=== PATIENT | female | born 1935 | race Caucasian/White ===

== ENCOUNTER 2016-10-12 12:39 | Emergency (ER) | payer BC ==
[~2016-10-12] VITALS: Ht 172.7 cm; Wt 74.3 kg
[~2016-10-12 12:39] MED LIST: LXP/10 PO; RANI150T3 PO; SYN75 PO; VITA400C15 PO
[2016-10-12 12:52] VITALS: Ht 172.7 cm; Wt 74.3 kg
[2016-10-12] MEDS ORDERED: CHOL2000 PO (13:04)
--- NOTE | 2016-10-12 14:11 | DIAGNOSTIC IMAGING REPORT ---
SINGLE VIEW CHEST CLINICAL HISTORY: Hypertension. FINDINGS: An AP, portable, upright chest radiograph is compared to study dated 06/30/2014. The examination is degraded by portable technique and patient rotation. The cardiomediastinal silhouette is unremarkable. There is atherosclerotic calcification of the thoracic aorta. Chronic interstitial thickening is noted. The lungs and pleural spaces are clear. No pneumothorax is seen. The skeletal structures are osteopenic. Advanced arthritic change is seen in the shoulders, right greater than left. IMPRESSION: No acute cardiopulmonary abnormality. Electronically signed by: Sánchez Ramirez M.D. 10/12/2016 2:10 PM Dictated Date/Time: 10/12/2016 2:09 PM
[2016-10-12 14:28] LABS: BASO % 0.9 %; BASO ABS # 0.06 K/uL (0-0.2); COMPLETE YES; EOS % 2.5 %; HEMATOCRIT 38.9 % (37-47); IG% 0.2 %; LYMPH % 28.4 %; LYMPH ABS # 1.84 K/uL (1.2-3.4); MEAN CELL VOLUME 88.6 fL (80-100); MEAN CORPUSCULAR HEMOGLOBIN 30.8 pg (25-34); MEAN CORPUSCULAR HGB CONC 34.7 g/dl (32-36); MEAN PLATELET VOLUME 9.4 fL (7.4-10.4); MONO % 12.7 %; NEUT % 55.3 %; PLATELET COUNT 256 K/uL (130-400); RED BLOOD COUNT 4.39 M/uL (4.2-5.4); WHITE BLOOD COUNT 6.47 K/uL (4.8-10.8)
[2016-10-12 14:36] LABS: INR 1.1 (0.9-1.1); PROTHROMBIN TIME (PATIENT) 11.6 SECONDS (9.0-12.0)
[2016-10-12 14:48] LABS: ALT/SGPT 18 U/L (12-78); BLOOD UREA NITROGEN 31 mg/dl (7-18); BUN/CREATININE RATIO 23.5 (10-20); CALCIUM 9.5 mg/dl (8.5-10.1); CARBON DIOXIDE 25 mmol/L (21-32); CHLORIDE 106 mmol/L (98-107); GLUCOSE 110 mg/dl (70-99); POTASSIUM 3.6 mmol/L (3.5-5.1); SODIUM 141 mmol/L (136-145)
[2016-10-12 14:59] LABS: ALKALINE PHOSPHATASE 72 U/L (45-117); AST/SGOT 16 U/L (15-37)
[2016-10-12 17:15] LABS: URINE APPEARANCE CLEAR (CLEAR); URINE BILIRUBIN NEG (NEG); URINE COLOR YELLOW; URINE EPITHELIAL CELL AUTO 20-30 /lpf (0-5); URINE NITRITE NEG (NEG); URINE PH 5.5 (4.5-7.5); URINE SPECIFIC GRAVITY 1.017 (1.000-1.030); UROBILINOGEN NEG (NEG)
[2016-10-12] MEDS ORDERED: AMLODIPINE BESYLATE 5 MG TAB PO ONE (17:15)
[2016-10-12] MEDS ORDERED: AMLO5TAB2 PO (17:17)
[2016-10-12 17:37] LABS: MANUAL MICROSCOPIC REQUIRED? NO; REVIEW REQ? NO
[2016-10-12 18:08] VITALS: BP 222/99; PULSE 64; TEMP 36.6; O2SAT 98
--- NOTE | 2016-10-12 21:12 | EMERGENCY ROOM VISIT NOTE ---
History Report prepared by Evangelist: Luz Wallace Under the Supervision of: Dr. You Aguiar M.D. First contact with patient: 13:24 Chief Complaint: HYPERTENSION Stated Complaint: HIGH BLOOD PRESSURE History of Present Illness The patient is a 81 year old female who presents to the Emergency Room with complaints of persistent hypertension throughout the day today. The patient states that she woke up this morning around 4AM feeling "miserable" and with ear ringing. She took her blood pressure at that time and it was elevated. She has taken it a few times since then and continued to have high blood pressure, so she decided to come to the ER. She reports that she had a stressor at baby shower this past weekend and she is under the impression that this could have contributed to her blood pressure. She has a history of hypertension and has been on medications in the past including Maxzide, but was taken off of the medications by her PCP, although she cannot remember when. Pt denies LOC, headache, fevers, chills, diaphoresis, visual changes, neck pain, chest pain, breathing difficulties, nausea, vomiting, abdominal pain, back pain, melena, hematochezia, urinary symptoms, numbness, weakness, lymphadenopathy, rash, or other complaints. Source of History: patient Onset: today Position: other (global) Quality: other (hypertension) Timing: other (persistent) Review of Systems See HPI for pertinent positives and negatives. A total of ten systems were reviewed and were otherwise negative. Past Medical & Surgical Medical Problems: (1) Breast cancer (2) Diet-controlled type 2 diabetes mellitus (3) GERD (gastroesophageal reflux disease) (4) HTN (hypertension) (5) Hypothyroidism Surgical Problems: (1) H/O mastectomy Family History No pertinent family history stated. Social History Smoking Status: Never Smoker Marital Status: Housing Status: lives with significant other Current/Historical Medications Scheduled Amlodipine Besylate (Norvasc), 1 TAB PO DAILY Cholecalciferol (Vitamin D3), 2,000 INTER.UNIT PO DAILY Escitalopram Oxalate (Lexapro), 10 MG PO DAILY Levothyroxine Sodium (Synthroid), 75 MCG PO DAILY Ranitidine Hcl (Zantac), 150 MG PO DAILY Allergies Coded Allergies: Sulfa Drugs (Verified Allergy, Unknown, TAKES DYAZIDE AT HOME W/O RXN, ) Physical Exam Vital Signs Date Time Temp Pulse Resp B/P Pulse Ox O2 Delivery O2 Flow Rate FiO2 10/12/16 18:08 36.6 64 13 222/99 98 10/12/16 18:01 222/99 10/12/16 18:00 64 13 98 10/12/16 17:46 208/107 10/12/16 17:45 62 14 95 10/12/16 17:31 204/108 10/12/16 17:30 62 15 98 10/12/16 17:16 196/99 10/12/16 17:15 63 18 100 10/12/16 17:01 217/103 10/12/16 17:00 68 21 100 10/12/16 16:57 208/102 10/12/16 16:55 69 18 208/102 97 Room Air 10/12/16 16:54 67 87 10/12/16 16:39 60 97 10/12/16 16:24 60 99 10/12/16 16:09 61 93 10/12/16 15:54 62 19 97 10/12/16 15:39 61 16 97 10/12/16 15:24 60 14 98 10/12/16 15:09 62 16 100 10/12/16 14:54 61 13 97 10/12/16 14:39 62 20 100 10/12/16 14:38 62 10/12/16 14:18 63 14 175/87 98 Room Air 10/12/16 14:17 175/87 10/12/16 14:00 Room Air 10/12/16 12:52 36.6 68 16 106/66 99 Room Air Physical Exam GENERAL: Awake, alert, well appearing, no distress HENT: Normocephalic, atraumatic. TM's normal. Oropharynx unremarkable. EYES: PERRL. EOMI. Normal conjunctiva. Sclera non-icteric. NECK: Supple. No nuchal rigidity. FROM. No JVD or bruit. RESPIRATORY: CTA CARDIAC: RRR. No murmur. ABDOMEN: Soft, non distended. No tenderness to palpation. No rebound or guarding. No masses. RECTAL: Deferred. MUSCULOSKELETAL: Unremarkable. No edema. No discoloration. Gross motor strength symmetric. NEURO: Cranial nerves 2-12 grossly intact. Normal sensorium. No sensory or motor deficits noted. Speech normal. No pronator drift. SKIN: No rash or jaundice noted. LYMPH: No adenopathy. Medical Decision & Procedures ER Provider Diagnostic Interpretation: Radiology results as stated below per my review and radiologist interpretation: SINGLE VIEW CHEST CLINICAL HISTORY: Hypertension. FINDINGS: An AP, portable, upright chest radiograph is compared to study dated 06/30/2014. The examination is degraded by portable technique and patient rotation. The cardiomediastinal silhouette is unremarkable. There is atherosclerotic calcification of the thoracic aorta. Chronic interstitial thickening is noted. The lungs and pleural spaces are clear. No pneumothorax is seen. The skeletal structures are osteopenic. Advanced arthritic change is seen in the shoulders, right greater than left. IMPRESSION: No acute cardiopulmonary abnormality. Electronically signed by: Sánchez Ramirez M.D. 10/12/2016 2:10 PM Dictated Date/Time: 10/12/2016 2:09 PM Laboratory Results 10/12/16 14:05 Red Blood Count 4.39, Mean Corpuscular Volume 88.6, Mean Corpuscular Hemoglobin 30.8, Mean Corpuscular Hemoglobin Concent 34.7, Mean Platelet Volume 9.4, Neutrophils (%) (Auto) 55.3, Lymphocytes (%) (Auto) 28.4, Monocytes (%) (Auto) 12.7, Eosinophils (%) (Auto) 2.5, Basophils (%) (Auto) 0.9, Neutrophils # (Auto ) 3.58, Lymphocytes # (Auto) 1.84, Monocytes # (Auto) 0.82, Eosinophils # (Auto ) 0.16, Basophils # (Auto) 0.06 10/12/16 14:05 Test 10/12/16 14:05 10/12/16 17:00 White Blood Count 6.47 K/uL (4.8-10.8) Red Blood Count 4.39 M/uL (4.2-5.4) Hemoglobin 13.5 g/dL (12.0-16.0) Hematocrit 38.9 % (37-47) Mean Corpuscular Volume 88.6 fL (80-100) Mean Corpuscular Hemoglobin 30.8 pg (25-34) Mean Corpuscular Hemoglobin Concent 34.7 g/dl (32-36) Platelet Count 256 K/uL (130-400) Mean Platelet Volume 9.4 fL (7.4-10.4) Neutrophils (%) (Auto) 55.3 % Lymphocytes (%) (Auto) 28.4 % Monocytes (%) (Auto) 12.7 % Eosinophils (%) (Auto) 2.5 % Basophils (%) (Auto) 0.9 % Neutrophils # (Auto) 3.58 K/uL (1.4-6.5) Lymphocytes # (Auto) 1.84 K/uL (1.2-3.4) Monocytes # (Auto) 0.82 K/uL (0.11-0.59) Eosinophils # (Auto) 0.16 K/uL (0-0.5) Basophils # (Auto) 0.06 K/uL (0-0.2) RDW Standard Deviation 42.8 fL (36.4-46.3) RDW Coefficient of Variation 13.2 % (11.5-14.5) Immature Granulocyte % (Auto) 0.2 % Immature Granulocyte # (Auto) 0.01 K/uL (0.00-0.02) Prothrombin Time 11.6 SECONDS (9.0-12.0) Prothromb Time International Ratio 1.1 (0.9-1.1) Activated Partial Thromboplast Time 25.7 SECONDS (21.0-31.0) Partial Thromboplastin Ratio 1.0 Anion Gap 10.0 mmol/L (3-11) Est Creatinine Clear Calc Drug Dose 35.4 ml/min Estimated GFR () 45.2 Estimated GFR (Non- 39.0 BUN/Creatinine Ratio 23.5 (10-20) Calcium Level 9.5 mg/dl (8.5-10.1) Total Bilirubin 0.5 mg/dl (0.2-1) Direct Bilirubin < 0.1 mg/dl (0-0.2) Aspartate Amino Transf (AST/SGOT) 16 U/L (15-37) Alanine Aminotransferase (ALT/SGPT) 18 U/L (12-78) Alkaline Phosphatase 72 U/L (45-117) Total Protein 7.0 gm/dl (6.4-8.2) Albumin 3.8 gm/dl (3.4-5.0) Lipase 164 U/L (73-393) Thyroid Stimulating Hormone (TSH) 1.930 uIu/ml (0.300-4.500) Urine Color YELLOW Urine Appearance CLEAR (CLEAR) Urine pH 5.5 (4.5-7.5) Urine Specific [place] 1.017 (1.000-1.030) Urine Protein NEG (NEG) Urine Glucose (UA) NEG (NEG) Urine Ketones TRACE (NEG) Urine Occult Blood NEG (NEG) Urine Nitrite NEG (NEG) Urine Bilirubin NEG (NEG) Urine Urobilinogen NEG (NEG) Urine Leukocyte Esterase TRACE (NEG) Urine WBC (Auto) 1-5 /hpf (0-5) Urine RBC (Auto) 0-4 /hpf (0-4) Urine Hyaline Casts (Auto) 1-5 /lpf (0-5) Urine Epithelial Cells (Auto) 20-30 /lpf (0-5) Urine Bacteria (Auto) NEG (NEG) Laboratory results reviewed by me Medications Administered Medications (Trade) Dose Ordered Sig/Iram Route Start Time Stop Time Status Last Admin Dose Admin Amlodipine Besylate (Norvasc Tab) 5 mg NOW ONCE PO 10/12/16 17:15 10/12/16 17:16 DC 10/12/16 18:10 5 MG ECG Indication: other (hypertension) Rate (beats per minute): 67 Rhythm: normal sinus Findings: LAFB, Q waves (Septal), no ectopy, other (LVH) ED Course 1330: The patient was evaluated in room C2. A complete history and physical exam was performed. 1614: I reassessed the patient and updated her on results so far. 1634: I discussed the case with Dr. Cueto - [facility]. She recommended 5 of Norvasc. She will see the patient in the office. 1715: Ordered Norvasc 5 mg PO. 1717: I reevaluated the patient. She was resting comfortably. Discussed results and discharge instructions: She verbalized understanding and agreement. The patient is ready for discharge. Medical Decision Prior records/ancillary studies reviewed regarding the history above. Triage Nursing notes reviewed and agree them. Additional history obtained from the family. The patient's history was concerning for hypertension. Differential diagnosis: Etiologies such as benign hypertension, hypertensive emergency, cardiovascular pathology, pheochromocytoma, electrolyte abnormality, renal disease, endorgan damage, as well as others were entertained. Physical examination: As above.clinically the patient was doing very well. Asymptomatic ER treatment provided: Oral Norvasc On reassessment the patient felt better. Diagnostic interpretation by me: The electrocardiogram was negative for pathologic change. The labs revealed an unremarkable CT scan, chemistry panel, urinalysis, LFTs and TSH. Imaging studies: Chest x-ray as above. Consultation: A consultation was placed with the patient's primary physician. The case was discussed and diagnostics were reviewed. Norvasc 5 mg was recommended with close follow-up in the office for evaluation and continued management The patient has significant hypertension but is asymptomatic. By the evaluation outlined above emergent etiologies such as hypertensive emergency, pheochromocytoma, endorgan damage, cardiac ischemia, aortic dissection, pulmonary embolism, pneumonia, pneumothorax, infections, gastrointestinal, as well as others were deemed relatively unlikely. The patient and were informed about the findings as listed above. All questions were answered and they were pleased with the treatment. Return instructions were outlined and the patient was discharged in stable condition. Outpatient prescription management: Norvasc Referral: The patient was referred back to her primary care physician for follow-up in 2 to 3 days for a recheck of the current condition. The chart was completed utilizing [employer] Speech voice recognition software. Grammatical errors, random word insertions, pronoun errors, and incomplete sentences are an occasional consequence of this system due to software limitations, ambient noise, and hardware issues. Any formal questions or concerns about the content, text, or information contained within the body of this dictation should be directly addressed to the physician for clarification. Consults Time Called: 1630 Consulting Physician: Dr. Cueto - [facility] Returned Call: 1634 I discussed the case with her. She recommended 5 of Norvasc. She will see the patient in the office. Impression Primary Impression: HTN (hypertension) Scribe Attestation The scribe's documentation has been prepared under my direction and personally reviewed by me in its entirety. I confirm that the note above accurately reflects all work, treatment, procedures, and medical decision making performed by me. Departure Information Dispostion Home / Self-Care Prescriptions Amlodipine Besylate (NORVASC) 5 Mg Tab 1 TAB PO DAILY for 30 Days, #30 TAB Prov: You Aguiar MD 10/12/16 Referrals Perfecto Cueto M.D. (PCP) Patient Instructions Hypertension Ct, My [facility] [employer] Additional Instructions Monitor blood pressure twice daily and record this for your family doctor. Rest and drink plenty of fluids as tolerated. Continue current medications. Avoid strenuous activities and anything that worsens your pain. Resume normal activities once your symptoms resolve. Return to the ER immediately for passing out, severe headache, chest pain, abdominal pain, vomiting, fevers, chest pains, difficulty breathing, worsening of your condition, or as needed. Follow up with your primary physician tomorrow to schedule an appointment for a recheck of your current condition.
== END 2016-10-12 18:08 | disposition home or self-care (01) ==
LOC: C.EDB 12:41 → C.EDC 18:08
DX: I10 Essential (primary) hypertension (principal); Z85.3 Personal history of malignant neoplasm of breast; E11.9 Type 2 diabetes mellitus without complications; K21.9 Gastro-esophageal reflux disease without esophagitis; E03.9 Hypothyroidism, unspecified; Z90.10 Acquired absence of unspecified breast and nipple; Z79.899 Other long term (current) drug therapy

== ENCOUNTER 2017-11-25 14:50 | Emergency (ER) | payer BC ==
[~2017-11-25] VITALS: Ht 172.7 cm; Wt 69.0 kg
[~2017-11-25 14:50] MED LIST changes: +AMLO5TAB2 PO; +CHOL2000 PO; -VITA400C15 PO
[2017-11-25 14:59] VITALS: TEMP 36.5; Ht 172.7 cm; Wt 69.0 kg
[2017-11-25] MEDS ORDERED: DIPHTHERIA/TETANUS/PERTUSSIS 0.5 ML SYR/VIAL IM. ONE (15:00)
--- NOTE | 2017-11-25 15:00 | EMERGENCY ROOM VISIT NOTE ---
History Report prepared by Evangelist: Doyle Blevins Under the Supervision of: Dr. Ruth Urbina D.O. First contact with patient: 14:50 Chief Complaint: FALL Stated Complaint: FALL, LAC ABOVE LEFT EYE History of Present Illness The patient is an 82 year old female who presents to the Emergency Room via EMS with complaints of a sudden mechanical fall that occurred earlier this afternoon. She states that she is coming from home. The patient notes that she was walking out of her garage, and was walking down 2 concrete steps when she lost her balance and stumbled forward. She says that she tried to get her hands out to break the fall, and grazed her head on the surrounding ground, but did not hit her head on the concrete. The patient says that she was not dizzy or lightheaded before or after the fall. She notes that she has a resulting laceration around her left eye, and a laceration on her left hand. Per EMS, the patient was a bit hypertensive after the fall, but has a history of hypertension and is on Amlodipine for that. The patient adds that she is a bit nauseous, but that is from being nervous. She says that she feels fine otherwise , and denies any loss of consciousness. The patient states that she remembers everything from the fall. She denies any chest pain, shortness of breath, abdominal pain, back pain, or vomiting. The patient adds that she is not on any blood thinners. She notes that she takes Tylenol every evening. She says that she has a history of losing her balance. The patient does not recall when her last tetanus shot was. Source of History: patient, EMS Onset: [place] this afternoon Position: other (global) Symptom Intensity: remembers whole event Quality: other (fall - mechanical) Timing: other (sudden) Associated Symptoms: + nausea, No LOC, No chest pain, No SOB, No vomiting, No abdominal pain, No back pain Note: Associated symptoms: Laceration left eye, and left hand. Denies dizziness, lightheadedness. Review of Systems See HPI for pertinent positives & negatives. A total of 10 systems reviewed and were otherwise negative. Past Medical & Surgical Medical Problems: (1) Breast cancer (2) Diet-controlled type 2 diabetes mellitus (3) GERD (gastroesophageal reflux disease) (4) HTN (hypertension) (5) Hypothyroidism Surgical Problems: (1) H/O mastectomy Family History Family history omitted secondary to patient's advanced age. Social History Smoking Status: Never Smoker Marital Status: Housing Status: lives with significant other Current/Historical Medications Scheduled Acetaminophen (Tylenol), 500 MG PO QPM Amlodipine (Norvasc), 5 MG PO QPM Cholecalciferol (Vitamin D3), 2,000 INTER.UNIT PO QPM Escitalopram Oxalate (Lexapro), 10 MG PO QPM Levothyroxine Sodium (Levothyroxine Sodium), 125 MCG PO QPM Ranitidine Hcl (Zantac), 150 MG PO QPM Solifenacin Succinate (Vesicare), 5 MG PO QPM Allergies Coded Allergies: Sulfa Drugs (Verified Allergy, Unknown, TAKES DYAZIDE AT HOME W/O RXN, ) Physical Exam Vital Signs Date Time Temp Pulse Resp B/P (MAP) Pulse Ox O2 Delivery O2 Flow Rate FiO2 11/25/17 18:25 65 20 180/76 11/25/17 17:29 78 20 216/102 11/25/17 15:58 82 20 204/106 98 Room Air 11/25/17 15:08 76 20 193/94 98 Room Air 11/25/17 14:59 36.5 77 16 202/121 98 Room Air Physical Exam GENERAL: alert, well appearing, well nourished, no distress, non-toxic EYE EXAM: normal conjunctiva, PERRL and EOM's grossly intact HEAD: Superficial abrasion at the left lateral supraorbital ridge. No other facial swelling or bony tenderness. Head is otherwise normocephalic atraumatic. OROPHARYNX: no exudate, no erythema, lips, buccal mucosa, and tongue normal and mucous membranes are moist NECK: supple, no nuchal rigidity, no adenopathy, non-tender LUNGS: Clear to auscultation. Normal chest wall mechanics HEART: no murmurs, S1 normal and S2 normal ABDOMEN: abdomen soft, non-tender, normo-active bowel sounds, no masses, no rebound or guarding. BACK: Back is symmetrical on inspection and there is no deformity, no midline tenderness, no CVA tenderness. SKIN: no rashes and no bruising UPPER EXTREMITIES: Superficial abrasion to the proximal palmar aspect of the left hand. LOWER EXTREMITIES: No pitting edema. NEURO EXAM: Normal sensorium, cranial nerves II-XII grossly intact, normal speech, no gross weakness of arms, no gross weakness of legs. Medical Decision & Procedures ER Provider Diagnostic Interpretation: Radiology results have been interpreted by the radiologist and reviewed by me. PELVIS 1 OR 2 VIEW ROUTINE CLINICAL HISTORY: trauma COMPARISON STUDY: No previous studies for comparison. FINDINGS: Sacroiliac joints and symphysis pubis are intact. No acute fracture is identified within the pelvis or hips. Pelvic calcifications likely reflect phleboliths. IMPRESSION: No acute fracture within the pelvis or hips. Electronically signed by: Ronny Monson M.D. 11/25/2017 3:51 PM Dictated Date/Time: 11/25/2017 3:[address] OF THE HEAD WITHOUT CONTRAST CLINICAL HISTORY: Fall. COMPARISON STUDY: MRI of the brain August 05, 2007. CT DOSE: 893.36 mGy.cm TECHNIQUE: Helical axial images of the head were obtained without IV contrast. Automated exposure control was utilized for the study. A dose lowering technique was utilized adhering to the principles of ALARA. FINDINGS: No acute intracranial hemorrhage, midline shift or mass effect is present. Ventricular dilatation is likely due to atrophy. White matter hypodensities suggest moderate small vessel disease. The basilar cisterns are patent. There are no extra-axial collections. 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 There is no calvarial fracture. No is made of a small left periorbital contusion. Left globe is intact. There is no retrobulbar hematoma. IMPRESSION: 1. No acute intracranial findings. 2. Small left periorbital contusion. Left globe intact. No retrobulbar hematoma. No calvarial fracture. Electronically signed by: Ronny Monson M.D. 11/25/2017 3:32 PM Dictated Date/Time: 11/25/2017 3:30 PM CHEST ONE VIEW PORTABLE CLINICAL HISTORY: trauma COMPARISON STUDY: Chest radiograph October 12, 2016. FINDINGS: There are right axillary surgical clips. No pneumothorax or pleural effusion is noted. Patient is mildly rotated. No airspace opacities are present. Cardiomediastinal silhouette is unremarkable. IMPRESSION: No acute cardiopulmonary findings. Electronically signed by: Ronny Monson M.D. 11/25/2017 3:49 PM Dictated Date/Time: 11/25/2017 3:[address] OF THE CERVICAL SPINE WITHOUT CONTRAST CLINICAL HISTORY: Fall. COMPARISON STUDY: No previous studies for comparison. TECHNIQUE: Helical axial images of the cervical spine were obtained without IV contrast. Sagittal and coronal reconstructions were viewed. A dose lowering technique was utilized adhering to the principles of ALARA. FINDINGS: Alignment of the cervical spine is anatomic. No fracture is present. Craniocervical junction is intact. There is moderate multilevel degenerative disc disease and facet arthrosis. There is no prevertebral edema. IMPRESSION: No acute cervical spine fracture or subluxation. Electronically signed by: Ronny Monson M.D. 11/25/2017 3:47 PM Dictated Date/Time: 11/25/2017 3:33 PM Medications Administered Medications (Trade) Dose Ordered Sig/Iram Route Start Time Stop Time Status Last Admin Dose Admin Diphtheria/ Pertussis/Tetanus Vacc (Adacel Inj) 0.5 ml ONCE ONCE IM. 11/25/17 15:00 11/25/17 15:01 DC 11/25/17 16:00 0.5 ML Lorazepam (Ativan Tab) 0.5 mg NOW STAT SL 11/25/17 16:24 11/25/17 16:25 DC 11/25/17 16:49 0.5 MG Amlodipine Besylate (Norvasc Tab) 5 mg NOW ONCE PO 11/25/17 17:30 11/25/17 17:31 DC 11/25/17 17:51 5 MG Procedure Location: Left lateral supraorbital ridge. Total length: 1.5 cm Complexity: Simple Verbal consent was obtained after the risks and benefits were explained, including but not limited to bleeding, scarring, infection, pain, and bone/joint /nerve damage. At this time, the risks of the procedure are less than the risks of NOT performing the procedure. A time out was taken and the correct patient and site identified. The skin was prepped with betadine. The target area was anesthetized with 3 ml's of 1% lidocaine with epinephrine. Copious irrigation was performed using normal saline. The skin was re-prepped with betadine and a sterile field set. The wound was explored for foreign bodies and none found. Examination revealed no injury to deep structures such as tendons, bone, or significant blood vessels. Debridement was not performed. The wound edges were approximated using 3, 5-0 simple interrupted nylon sutures. Hemostasis and excellent approximation was achieved. Antibacterial ointment and a sterile dressing applied. Detailed wound care instructions and signs and symptoms of infection reviewed with the patient. No complications and the patient tolerated the procedure well. ED Course 1451: The patient was evaluated in room A10. A complete history and physical exam was performed. 1500: Adacel Inj 0.5 ml IM. 1609: I reevaluated and updated the patient. I also performed a laceration repair. 1624: Ativan Tab 0.5 mg SL. 1700: Upon reevaluation, the patient is feeling better. I discussed the findings and the treatment plan with the patient. She verbalizes agreement and understanding. 1730: Norvasc Tab 5 mg PO. 1800: I reevaluated and updated the patient. She is resting comfortably and asymptomatic. I discussed the findings and treatment plan with the patient. She will be discharged as soon as her blood pressure goes down. Medical Decision Differential diagnoses include major intracranial, cervical, spinal, thoracic, abdominal, pelvic and neurologic injury. Fracture, contusion, sprain, strain, laceration, abrasions included as well. Patient well-appearing here, imaging negative, patient with no other complaints. Concern for patient's persistent hypertension which feels more likely situational related to her anxiety regarding being here. Patient does take blood pressure medication daily. Patient with no other symptoms to suggest hypertensive urgency/emergency. Discussed with patient close follow-up with the family doctor to recheck her blood pressure, symptoms to watch and return for, precautions regarding head injuries and concussions, instructions regarding wound care and suture removal, she verbalized understanding was agreeable with plan. I do not suspect additional occult traumatic injury. Patient not anticoagulated and low risk. Patient ambulatory here with a steady gait and no new or evolving symptoms. Medication Reconcilliation Current Medication List: was personally reviewed by me Blood Pressure Screening Patient's blood pressure: Elevated blood pressure Blood pressure disposition: Referred to PCP Impression Primary Impression: Fall Additional Impressions: CHI (closed head injury) Facial laceration Abrasion Scribe Attestation The scribe's documentation has been prepared under my direction and personally reviewed by me in its entirety. I confirm that the note above accurately reflects all work, treatment, procedures, and medical decision making performed by me. Departure Information Dispostion Home / Self-Care Referrals Perfecto Cueto M.D. (PCP) Patient Instructions My [facility] Additional Instructions Please be careful with ambulation to avoid any recurrent falls or injury. The 3 stitches on the side of your face need to be removed in 5-7 days. Please watch for any redness, increased pain, bleeding or drainage from the site of the injury. If you notice any of this please return to the ER immediately. If you have any other worsening symptoms or new concerns including worsening headache, vision changes, dizziness, nausea or vomiting, numbness or tingling, neck or back pain, please return the emergency room. Please follow-up with your family doctor as a precaution next week. Problem Qualifiers Primary Impression: Fall Encounter type: initial encounter Qualified Codes: W19.XXXA - Unspecified fall, initial encounter Additional Impressions: CHI (closed head injury) Encounter type: initial encounter Qualified Codes: S09.90XA - Unspecified injury of head, initial encounter Facial laceration Encounter type: initial encounter Qualified Codes: S01.81XA - Laceration without foreign body of other part of head, initial encounter
[2017-11-25] MEDS ORDERED: AMLO-110 PO (15:11)
[2017-11-25] MEDS ORDERED: ACET-1256 PO (15:13)
[2017-11-25] MEDS ORDERED: LEVO125T5 PO (15:14)
[2017-11-25] MEDS ORDERED: SOLI5TAB2 PO (15:15)
--- NOTE | 2017-11-25 15:34 | DIAGNOSTIC IMAGING REPORT ---
CT OF THE HEAD WITHOUT CONTRAST CLINICAL HISTORY: Fall. COMPARISON STUDY: MRI of the brain August 05, 2007. CT DOSE: 893.36 mGy.cm TECHNIQUE: Helical axial images of the head were obtained without IV contrast. Automated exposure control was utilized for the study. A dose lowering technique was utilized adhering to the principles of ALARA. FINDINGS: No acute intracranial hemorrhage, midline shift or mass effect is present. Ventricular dilatation is likely due to atrophy. White matter hypodensities suggest moderate small vessel disease. The basilar cisterns are patent. There are no extra-axial collections. 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 There is no calvarial fracture. No is made of a small left periorbital contusion. Left globe is intact. There is no retrobulbar hematoma. IMPRESSION: 1. No acute intracranial findings. 2. Small left periorbital contusion. Left globe intact. No retrobulbar hematoma. No calvarial fracture. Electronically signed by: Ronny Monson M.D. 11/25/2017 3:32 PM Dictated Date/Time: 11/25/2017 3:30 PM
--- NOTE | 2017-11-25 15:48 | DIAGNOSTIC IMAGING REPORT ---
CT OF THE CERVICAL SPINE WITHOUT CONTRAST CLINICAL HISTORY: Fall. COMPARISON STUDY: No previous studies for comparison. TECHNIQUE: Helical axial images of the cervical spine were obtained without IV contrast. Sagittal and coronal reconstructions were viewed. A dose lowering technique was utilized adhering to the principles of ALARA. FINDINGS: Alignment of the cervical spine is anatomic. No fracture is present. Craniocervical junction is intact. There is moderate multilevel degenerative disc disease and facet arthrosis. There is no prevertebral edema. IMPRESSION: No acute cervical spine fracture or subluxation. Electronically signed by: Ronny Monson M.D. 11/25/2017 3:47 PM Dictated Date/Time: 11/25/2017 3:33 PM
--- NOTE | 2017-11-25 15:51 | DIAGNOSTIC IMAGING REPORT ---
CHEST ONE VIEW PORTABLE CLINICAL HISTORY: trauma COMPARISON STUDY: Chest radiograph October 12, 2016. FINDINGS: There are right axillary surgical clips. No pneumothorax or pleural effusion is noted. Patient is mildly rotated. No airspace opacities are present. Cardiomediastinal silhouette is unremarkable. IMPRESSION: No acute cardiopulmonary findings. Electronically signed by: Ronny Monson M.D. 11/25/2017 3:49 PM Dictated Date/Time: 11/25/2017 3:48 PM
--- NOTE | 2017-11-25 15:53 | DIAGNOSTIC IMAGING REPORT ---
PELVIS 1 OR 2 VIEW ROUTINE CLINICAL HISTORY: trauma COMPARISON STUDY: No previous studies for comparison. FINDINGS: Sacroiliac joints and symphysis pubis are intact. No acute fracture is identified within the pelvis or hips. Pelvic calcifications likely reflect phleboliths. IMPRESSION: No acute fracture within the pelvis or hips. Electronically signed by: Ronny Monson M.D. 11/25/2017 3:51 PM Dictated Date/Time: 11/25/2017 3:50 PM
[2017-11-25 15:58] VITALS: O2SAT 98
[2017-11-25] MEDS ORDERED: LIDOCAINE/EPINEPHRINE 1% 20 ML VIAL ONE (16:13)
[2017-11-25] MEDS ORDERED: LORAZEPAM 0.5 MG TAB SL STA (16:24)
[2017-11-25] MEDS ORDERED: AMLODIPINE BESYLATE 5 MG TAB PO ONE (17:30)
[2017-11-25 18:25] VITALS: BP 180/76; PULSE 65
== END 2017-11-25 18:30 | disposition home or self-care (01) ==
LOC: EDBD 14:50 → C.EDA 14:51
DX: S09.90XA Unspecified injury of head, initial encounter (principal); S01.81XA Laceration without foreign body of other part of head, initial encounter; W10.9XXA Fall (on) (from) unspecified stairs and steps, initial encounter; W22.8XXA Striking against or struck by other objects, initial encounter; Y93.01 Activity, walking, marching and hiking; Y99.8 Other external cause status; Y92.015 Private garage of single-family (private) house as the place of occurrence of the external cause; Z23 Encounter for immunization; E11.9 Type 2 diabetes mellitus without complications; I10 Essential (primary) hypertension; E03.9 Hypothyroidism, unspecified; K21.9 Gastro-esophageal reflux disease without esophagitis; Z85.3 Personal history of malignant neoplasm of breast; Z90.10 Acquired absence of unspecified breast and nipple; Z88.2 Allergy status to sulfonamides; Z79.899 Other long term (current) drug therapy

== ENCOUNTER 2019-06-24 16:01 | Inpatient (IN) ==
[2019-06-24] MEDS ORDERED: SODIUM CHLORIDE 0.9% 1000ML 500 ML IV ONE (16:13)
--- NOTE | 2019-06-24 16:34 | XRay Report ---
SINGLE VIEW CHEST CLINICAL HISTORY: Generalized weakness. FINDINGS: An AP, portable, upright chest radiograph is compared to study dated 11/25/2017. The examina tion is degraded by portable technique and patient rotation. The cardiomediastinal silhouette is unre markable noting atherosclerotic calcification of the thoracic aorta. Chronic interstitial thickening and elevation of the left hemidiaphragm are similar to previous. No airspace consolidation or large p leural effusion is identified. Foci of linear atelectasis are noted at the left lung base. No pneumot horax is seen. The skeletal structures are osteopenic. The bony thorax is grossly intact. Advanced de generative change is noted in the shoulders. Surgical clips are seen in the right axilla. IMPRESSION: No active disease in the chest. Electronically signed by: Sánchez Ramirez M.D. 06/24/2019 4:33 PM
[2019-06-24 17:17] LABS: Appearance Urine Cloudy (Clear); Bacteria Urine Automated 4+ (Negative); Bilirubin Urine Negative (Negative); Blood Urine Negative (Negative); Color Urine Dark Yellow; Glucose Urine UA Negative (Negative); Ketones Urine Negative (Negative); Leukocyte Esterase Urine Negative (Negative); Nitrite Urine Positive (Negative); Protein Urine Negative (Negative); RBC Urine Automated 0-4 /hpf (0-4); Specific Gravity Urine 1.018 (1.000-1.030); Urobilinogen Urine Negative (Negative); pH Urine 5.5 (4.5-7.5)
[2019-06-24 17:34] LABS: Basophils # (auto) 0.06 K/uL (0-0.2); Basophils % (auto) 0.7 %; Eosinophils # (auto) 0.12 K/uL (0-0.5); Eosinophils % (auto) 1.5 %; Hematocrit (blood only) 38.3 % (37-47); Hemoglobin 13.1 g/dL (12.0-16.0); Immature Granulocytes # (auto) 0.01 K/uL (0.00-0.02); Immature Granulocytes % (auto) 0.1 %; Lymphocytes % (auto) 11.1 %; Mean Corpuscular Hemoglobin 30.9 pg (25-34); Mean Corpuscular Hgb Conc 34.2 g/dL (32-36); Mean Corpuscular Volume 90.3 fL (80-100); Mean Platelet Volume 9.6 fL (7.4-10.4); Monocytes # (auto) 0.72 K/uL (0.11-0.59); Monocytes % (auto) 8.9 %; Neutrophils # (auto) 6.28 K/uL (1.4-6.5); Neutrophils % (auto) 77.7 %; Platelet Count 249 K/uL (130-400); RDW Coefficient of Variation 12.6 % (11.5-14.5); RDW Standard Deviation 41.4 fL (36.4-46.3); Red Blood Count 4.24 M/uL (4.2-5.4); White Blood Count 8.09 K/uL (4.8-10.8)
[2019-06-24] MEDS ORDERED: cefTRIAXone SODIUM 2,000 MG/70 ML BAG IV STA (17:39)
[2019-06-24 17:52] LABS: Alanine Aminotransferase 16 U/L (12-78); Albumin Level 3.6 gm/dl (3.4-5.0); Aspartate Aminotransferase 14 U/L (15-37); BUN Creatinine Ratio 22.2 (10-20); Blood Urea Nitrogen 39 mg/dl (7-18); Calcium 9.8 mg/dl (8.5-10.1); Carbon Dioxide 26 mmol/L (21-32); Chloride 106 mmol/L (98-107); Creatinine Clr Calc Pharmacy 24.9 ml/min; Est GFR (African American) 30.7; Est GFR (Non-African American) 26.5; Glucose 161 mg/dl (70-99); Potassium 3.6 mmol/L (3.5-5.1); Sodium 138 mmol/L (136-145)
[2019-06-24 18:03] LABS: Albumin Globulin Ratio 1.1 (0.9-2); Alkaline Phosphatase 61 U/L (45-117); Bilirubin,Total 0.5 mg/dl (0.2-1); Creatine Kinase 56 U/L (26-192); Globulin 3.2 gm/dl (2.5-4.0); Total Protein 6.8 gm/dl (6.4-8.2); Troponin I < 0.015 ng/ml (0-0.045)
--- NOTE | 2019-06-24 18:11 | CT Scan Report ---
CT SCAN OF THE BRAIN WITHOUT IV CONTRAST CLINICAL HISTORY: Change in mental status. COMPARISON STUDY: CT of the brain dated 11/25/2017. TECHNIQUE: Unenhanced axial CT scan of the brain is performed from the vertex to the skull base. A do se lowering technique was utilized adhering to the principles of ALARA. CT DOSE: 580.48 mGy.cm FINDINGS: Brain parenchyma: There are age-related involutional changes noting advanced confluent subcortical a nd periventricular microangiopathic change. There is no hemorrhage, mass effect, or evidence of acute territorial ischemia by CT criteria. 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 A small chronic lacunar infarct is also noted in the right cerebellar hemisphere. A small arachnoid cy st is noted in the anterior temporal fossa on the left measuring up to 3 cm. Cruz-white matter differ entiation is preserved. No extra-axial fluid collection is seen. Ventricles, sulci, cisterns: Prominent secondary to involutional change. Intracranial vasculature: There is atherosclerotic calcification of the cavernous carotid and vertebr al arteries. Calvarium: Foci of hyperostosis are again noted. The calvarium appears intact. Sinuses and mastoids: There is trace mucosal thickening within the ethmoid sinuses. The remaining vis ualized paranasal sinuses are clear. The mastoid air cells are well pneumatized. Orbits: The bony orbits are grossly intact. There are bilateral ocular lens implants. IMPRESSION: Senescent changes as above with no hemorrhage, mass effect, or evidence of acute territor ial ischemia by CT criteria. Electronically signed by: Sánchez Ramirez M.D. 06/24/2019 6:10 PM
[2019-06-24 18:19] LABS: Lyme Ab IgG w/WB Rflx Negative (Negative); Lyme Ab IgM w/WB Rflx Negative (Negative)
--- NOTE | 2019-06-24 21:34 | History & Physical Report ---
Date of Service June 24, 2019 Assessment & Plan (1) Altered mental status: Patient presents with mild confusion. Has been endorses that she has had memory deficit and increased confusion over the last 6 months. They currently have an appointment at the end of July to assess for possible dementia. Additionally, patient appears to have a UTI and some dehydration which may be adding to confusion. Electrolytes and TSH are within normal limits, CT head with senescent changes and no acute intracranial pathology. No new medications or medication changes. Admit to medical floor telemetry monitoring -Delirium prevention strategies with frequent orientation -Treatment of UTI and dehydration as below -We will check B12 and folate to complete AMS work-up Present on Admission?: Yes (2) UTI (urinary tract infection): Patient with + UA suggestive of UTI. She is afebrile, hemodynamically stable, nontoxic in appearance. Follow cultures Ceftriaxone 1 g IV daily Present on Admission?: Yes (3) Syncope: Patient presents with what seems to be a syncopal event at home. She has had multiple events similar in the past. Presently she is hemodynamically stable. EKG with no acute findings -Telemetry monitoring -Check orthostatic vital signs x1 -Check 2D echo Present on Admission?: Yes (4) Dehydration: Patient with mild elevation of BUN and creatinine to 39 and 1.76, respectively. She appears clinically dry on physical exam. IV hydration with normal saline -Repeat chemistry in a.m. Present on Admission?: Yes (5) HTN (hypertension): Blood pressures mildly hypertensive upon arrival 186/86, has improved to 121/91 upon my encounter. Hold lisinopril for now in setting of mild increase in creatinine -Continue to monitor blood pressure (6) Hypothyroidism: Chronic. Stable. TSH within normal limits Continue levothyroxine at home dose Present on Admission?: Yes (7) Diet-controlled type 2 diabetes mellitus: Chronic. Stable. Blood glucose = 161 at present Consistent carb diet as tolerated F/E/Nnormal saline solution, monitor electrolytes and replete as needed, consistent carb diet as tolerated ProphylaxisLovenox 30 CodeDNR/DNI per discussion with patient Dispositionobservation to medical floor telemetry monitoring History of Present Illness Chief Complaint: syncope Primary Care Provider: Perfecto Cueto MD Theresa Calderón is a pleasant 84-year-old female with history of diet- controlled diabetes, GERD, hypertension and hypothyroidism presenting after syncopal event. is at bedside and provides the majority of details secondary to patient confusion. Per , patient was sitting on a chair this afternoon when she slumped forward and became unresponsive. She was out approximately 10 minutes then slowly regained consciousness. He denies confusion, incontinence. She did have some minor tremors she was regaining consciousness, no overt seizure activity. Patient has minimal recollection of the event but is able to deny chest pain, palpitations, dizziness, headache preceding or following the event. Per , patient has had similar episodes in the past approximately 2-3 times that he recalls over the past year. The last syncopal event was a few months ago and was similar to tonight's episode. Additionally, the patient and endorse balance difficulty ongoing for the last month as well as gait instability. Patient has been needing to use her walker at home. She reports that she is unable to stand for more than 15 minutes before becoming dizzy. She is also had urinary incontinence ongoing for the last year. endorses approximately 6 months of poor memory and confusion. Patient notes an occasional resting tremor in her hands. Also states that she has occasional visual hallucinationsseeing her mother. Patient has an appointment on [address] Daniels for further testing of possible dementia/cognitive impairment. Patient denies fevers, chills, abdominal pain, nausea, vomiting, diarrhea, constipation, chest pain, palpitations, shortness of breath, cough, wheeze. She does endorse some urinary incontinence ongoing for the last year but denies dysuria or hematuria ER course: Ceftriaxone, normal saline Allergies Allergy/AdvReac Type Severity Reaction Status Date / Time Sulfa (Sulfonamide Allergy Unknown TAKES Verified 06/24/19 16:51 Antibiotics) DYAZIDE AT HOME W/O RXN Home Medications Home Medications Medication Instructions Recorded Confirmed Type acetaminophen 1,000 mg PO QPM PRN 02/01/19 06/24/19 History celecoxib 100 mg PO BID 02/01/19 06/24/19 History cholecalciferol (vitamin D3) 2,000 unit PO QPM 02/01/19 06/24/19 History [Vitamin D3] latanoprost 1 drp OPB HS 02/01/19 06/24/19 History levothyroxine 125 mcg PO QAM 02/01/19 06/24/19 History meclizine [Motion Sickness 25 mg PO TID PRN 02/01/19 06/24/19 History (meclizine)] alendronate 70 mg PO WK 06/24/19 06/24/19 History escitalopram oxalate 10 mg PO DAILY 06/24/19 06/24/19 History lisinopril 2.5 mg PO DAILY 06/24/19 06/24/19 History solifenacin 5 mg PO DAILY 06/24/19 06/24/19 History Past Med/Surg History Medical History Breast cancer (Resolved) Diet-controlled type 2 diabetes mellitus (Chronic) GERD (gastroesophageal reflux disease) (Chronic) HTN (hypertension) (Chronic) Hypothyroidism (Chronic) Viral upper respiratory illness (Acute) Surgical History H/O mastectomy (Resolved) Family History Other Family history non-contributory Social History (Updated 06/24/19 @ 21:53 by Reena Rapp DO) Preferred Language: Azeri marital status: Current Living Situation: Spouse current occupational status: retired Feels Safe at Home: Yes Smoking Status: Never smoker Hx Alcohol Use: No Hx Substance Use: No Review of Systems Review of Systems: All systems reviewed & are unremarkable except as noted in HPI & below Physical Exam Physical Exam: General: patient resting comfortably, NAD, non-toxic in appearance, AA&O to self, is able to provide some details of history and events prior to the hospital however becomes confused with tangential thoughts Skin: warm, dry, intact, no rashes or lesions HEENT: NC/AT, PERRL, EOMI, anicteric sclera, conjunctiva without injection, external ear normal to inspection and nontender, nares patent, dry mucus membranes, dentition intact, no oropharyngeal lesions, neck supple, trachea midline, no LAD, no thyromegaly, no JVD Heart: +S1/S2, regular, no m/r/g Lungs: equal air entry bilaterally, no rales/rhonchi/wheezes Abd: +BS, soft, NT/ND, no masses/organomegaly/ascites Ext: warm, 2+ pulses in UE/LE bilaterally, no clubbing/cyanosis or edema Neuro: nonfocal, patient AA&O to self, speech intact, no facial droop, moving all extremities on command with equal strength 5/5 Results & Data Vital Signs (Past 12 Hours) Vital Signs Temp Pulse Resp BP Pulse Ox 06/24/19 20:00 73 18 186/86 H 96 06/24/19 19:30 76 17 156/85 H 96 06/24/19 19:00 76 18 159/77 H 98 06/24/19 18:30 76 19 165/77 H 95 06/24/19 18:12 74 19 98 06/24/19 18:11 74 17 155/91 H 97 06/24/19 17:31 73 15 172/91 H 99 06/24/19 17:30 73 18 99 06/24/19 17:06 72 22 97 06/24/19 17:00 73 16 163/148 H 97 06/24/19 16:26 98 06/24/19 16:01 36.5 C 70 18 138/75 98 Laboratory Results Lab Results 06/24/19 06/24/19 06/24/19 Range/Units 17:05 17:15 17:15 WBC 8.09 (4.8-10.8) K/uL RBC 4.24 (4.2-5.4) M/uL Hgb 13.1 (12.0-16.0) g/dL Hct 38.3 (37-47) % MCV 90.3 (80-100) fL MCH 30.9 (25-34) pg MCHC 34.2 (32-36) g/dL RDW Std Deviation 41.4 (36.4-46.3) fL RDW Coeff of Rogelio 12.6 (11.5-14.5) % Plt Count 249 (130-400) K/uL MPV 9.6 (7.4-10.4) fL Immature Gran % (Auto) 0.1 % Neut % (Auto) 77.7 % Lymph % (Auto) 11.1 % Polk % (Auto) 8.9 % Eos % (Auto) 1.5 % Baso % (Auto) 0.7 % Immature Gran # (Auto) 0.01 (0.00-0.02) K/uL Neut # (Auto) 6.28 (1.4-6.5) K/uL Lymph # (Auto) 0.90 L (1.2-3.4) K/uL Polk # (Auto) 0.72 H (0.11-0.59) K/uL Eos # (Auto) 0.12 (0-0.5) K/uL Baso # (Auto) 0.06 (0-0.2) K/uL Sodium 138 (136-145) mmol/L Potassium 3.6 (3.5-5.1) mmol/L Chloride 106 (98-107) mmol/L Carbon Dioxide 26 (21-32) mmol/L Anion Gap 6.0 (3-11) BUN 39 H (7-18) mg/dl Creatinine 1.76 H (0.6-1.2) mg/dl Est Cr Clr Drug Dosing 24.9 ml/min Est GFR ( Amer) 30.7 Est GFR (Non-Af Amer) 26.5 BUN/Creatinine Ratio 22.2 H (10-20) Glucose 161 H (70-99) mg/dl Calcium 9.8 (8.5-10.1) mg/dl Total Bilirubin 0.5 (0.2-1) mg/dl AST 14 L (15-37) U/L ALT 16 (12-78) U/L Alkaline Phosphatase 61 (45-117) U/L Total Creatine Kinase 56 (26-192) U/L Troponin I < 0.015 (0-0.045) ng/ml Total Protein 6.8 (6.4-8.2) gm/dl Albumin 3.6 (3.4-5.0) gm/dl Globulin 3.2 (2.5-4.0) gm/dl Albumin/Globulin Ratio 1.1 (0.9-2) TSH 1.770 (0.300-4.500) uIu/ml Urine Color Dark Yellow Urine Appearance Cloudy A (Clear) Urine pH 5.5 (4.5-7.5) Ur Specific [place] 1.018 (1.000-1.030) Urine Protein Negative (Negative) Urine Glucose (UA) Negative (Negative) Urine Ketones Negative (Negative) Urine Blood Negative (Negative) Urine Nitrite Positive A (Negative) Urine Bilirubin Negative (Negative) Urine Urobilinogen Negative (Negative) Ur Leukocyte Esterase Negative (Negative) Urine WBC (Auto) 1-5 (0-5) /hpf Urine RBC (Auto) 0-4 (0-4) /hpf U Hyaline Cast (Auto) 1-5 (0-5) /lpf U Epithel Cells (Auto) 10-20 H (0-5) /lpf Urine Bacteria (Auto) 4+ H (Negative) Lyme Disease IgG Ab (Negative) Lyme Disease IgM Ab (Negative) 06/24/19 Range/Units 17:15 WBC (4.8-10.8) K/uL RBC (4.2-5.4) M/uL Hgb (12.0-16.0) g/dL Hct (37-47) % MCV (80-100) fL MCH (25-34) pg MCHC (32-36) g/dL RDW Std Deviation (36.4-46.3) fL RDW Coeff of Rogelio (11.5-14.5) % Plt Count (130-400) K/uL MPV (7.4-10.4) fL Immature Gran % (Auto) % Neut % (Auto) % Lymph % (Auto) % Polk % (Auto) % Eos % (Auto) % Baso % (Auto) % Immature Gran # (Auto) (0.00-0.02) K/uL Neut # (Auto) (1.4-6.5) K/uL Lymph # (Auto) (1.2-3.4) K/uL Polk # (Auto) (0.11-0.59) K/uL Eos # (Auto) (0-0.5) K/uL Baso # (Auto) (0-0.2) K/uL Sodium (136-145) mmol/L Potassium (3.5-5.1) mmol/L Chloride (98-107) mmol/L Carbon Dioxide (21-32) mmol/L Anion Gap (3-11) BUN (7-18) mg/dl Creatinine (0.6-1.2) mg/dl Est Cr Clr Drug Dosing ml/min Est GFR ( Amer) Est GFR (Non-Af Amer) BUN/Creatinine Ratio (10-20) Glucose (70-99) mg/dl Calcium (8.5-10.1) mg/dl Total Bilirubin (0.2-1) mg/dl AST (15-37) U/L ALT (12-78) U/L Alkaline Phosphatase (45-117) U/L Total Creatine Kinase (26-192) U/L Troponin I (0-0.045) ng/ml Total Protein (6.4-8.2) gm/dl Albumin (3.4-5.0) gm/dl Globulin (2.5-4.0) gm/dl Albumin/Globulin Ratio (0.9-2) TSH (0.300-4.500) uIu/ml Urine Color Urine Appearance (Clear) Urine pH (4.5-7.5) Ur Specific [place] (1.000-1.030) Urine Protein (Negative) Urine Glucose (UA) (Negative) Urine Ketones (Negative) Urine Blood (Negative) Urine Nitrite (Negative) Urine Bilirubin (Negative) Urine Urobilinogen (Negative) Ur Leukocyte Esterase (Negative) Urine WBC (Auto) (0-5) /hpf Urine RBC (Auto) (0-4) /hpf U Hyaline Cast (Auto) (0-5) /lpf U Epithel Cells (Auto) (0-5) /lpf Urine Bacteria (Auto) (Negative) Lyme Disease IgG Ab Negative (Negative) Lyme Disease IgM Ab Negative (Negative) Diagnostic Findings CT SCAN OF THE BRAIN WITHOUT IV CONTRAST CLINICAL HISTORY: Change in mental status. COMPARISON STUDY: CT of the brain dated 11/25/2017. TECHNIQUE: Unenhanced axial CT scan of the brain is performed from the vertex to the skull base. A dose lowering technique was utilized adhering to the principles of ALARA. CT DOSE: 580.48 mGy.cm FINDINGS: Brain parenchyma: There are age-related involutional changes noting advanced confluent subcortical and periventricular microangiopathic change. There is no hemorrhage, mass effect, or evidence of acute territorial ischemia by CT criteria. 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 A small chronic lacunar infarct is also noted in the right cerebellar hemisphere. A small arachnoid cyst is noted in the anterior temporal fossa on the left measuring up to 3 cm. Cruz-white matter differentiation is preserved. No extra- axial fluid collection is seen. Ventricles, sulci, cisterns: Prominent secondary to involutional change. Intracranial vasculature: There is atherosclerotic calcification of the cavernous carotid and vertebral arteries. Calvarium: Foci of hyperostosis are again noted. The calvarium appears intact. Sinuses and mastoids: There is trace mucosal thickening within the ethmoid sinuses. The remaining visualized paranasal sinuses are clear. The mastoid air cells are well pneumatized. Orbits: The bony orbits are grossly intact. There are bilateral ocular lens implants. IMPRESSION: Senescent changes as above with no hemorrhage, mass effect, or evidence of acute territorial ischemia by CT criteria. Electronically signed by: Sánchez Ramirez M.D. 06/24/2019 6:10 PM Dictated: 06/24/19 180 Transcribed: 06/24/191805 SINGLE VIEW CHEST CLINICAL HISTORY: Generalized weakness. FINDINGS: An AP, portable, upright chest radiograph is compared to study dated 11/25/2017. The examination is degraded by portable technique and patient rotation. The cardiomediastinal silhouette is unremarkable noting atherosclerotic calcification of the thoracic aorta. Chronic interstitial thickening and elevation of the left hemidiaphragm are similar to previous. No airspace consolidation or large pleural effusion is identified. Foci of linear atelectasis are noted at the left lung base. No pneumothorax is seen. The skeletal structures are osteopenic. The bony thorax is grossly intact. Advanced degenerative change is noted in the shoulders. Surgical clips are seen in the right axilla. IMPRESSION: No active disease in the chest. Electronically signed by: Sánchez Ramirez M.D. 06/24/2019 4:33 PM Dictated: 06/24/19 1632 ECG Additional Comments: Study shows normal sinus rhythm at 75 bpm, left axis kelli ation with left anterior fascicular block, WA = 75, QRS = 86, QTc = 480, no acute ischemic changes apparent Code Status & VTE Plan Code Status DNR/DNI PG Care Time/CCT Total # of Minutes Spent Total Time Spent with Patient: Total time spent is greater than 50% in coordination of care (as documented) at patient's floor/unit and/or counseling patient: (1) UTI (urinary tract infection) Urinary tract infection type: acute cystitis Hematuria presence: without hematuria Qualified Code(s): N30.00 - Acute cystitis without hematuria (2) HTN (hypertension) Hypertension type: essential hypertension Qualified Code(s): I10 - Essential (primary) hypertension (3) Hypothyroidism Hypothyroidism type: unspecified Qualified Code(s): E03.9 - Hypothyroidism, unspecified (4) Altered mental status Altered mental status type: disorientation Qualified Code(s): R41.0 - Disorie ntation, unspecified (5) Syncope Syncope type: unspecified Qualified Code(s): R55 - Syncope and collapse
--- NOTE | 2019-06-24 22:41 | Emergency Department Note ---
Entered by Luz Forte acting as a scribe for Elías Walker MD History of Present Illness General Chief complaint: Seizure Stated complaint: SEIZURE Time Seen by Provider: 06/24/19 16:03 Source: patient and EMS Limitations: no limitations History of Present Illness Onset (ago): minute(s) (BUTTON SEWER HAND) Location: head Severity: similar to prior episodes Pain Consistency: + other (episode) Quality: + other ("seizure-like" activity) Associated symptoms: + denies other symptoms (abdominal pain) The patient is an 84 year old female who presents to the Emergency Room with complaints of an episode of "seizure-like" activity that occurred BUTTON SEWER HAND. Per EMS, the patient was seen in this ER 4 weeks ago for similar symptoms, noting that she was hypertensive at the time. EMS reports that her medications were adjusted after this episode. Per EMS, the patient's describes the seizure-like activity as "shaking and then staring off into space" while she was sitting down. The patient denies any abdominal pain. Home Medications Home Medications Medication Instructions Recorded Confirmed Type acetaminophen 1,000 mg PO QPM PRN 02/01/19 06/24/19 History celecoxib 100 mg PO BID 02/01/19 06/24/19 History cholecalciferol (vitamin D3) 2,000 unit PO QPM 02/01/19 06/24/19 History [Vitamin D3] latanoprost 1 drp OPB HS 02/01/19 06/24/19 History levothyroxine 125 mcg PO QAM 02/01/19 06/24/19 History meclizine [Motion Sickness 25 mg PO TID PRN 02/01/19 06/24/19 History (meclizine)] alendronate 70 mg PO WK 06/24/19 06/24/19 History escitalopram oxalate 10 mg PO DAILY 06/24/19 06/24/19 History lisinopril 2.5 mg PO DAILY 06/24/19 06/24/19 History solifenacin 5 mg PO DAILY 06/24/19 06/24/19 History Allergies Allergy/AdvReac Type Severity Reaction Status Date / Time Sulfa (Sulfonamide Allergy Unknown TAKES Verified 06/24/19 16:51 Antibiotics) DYAZIDE AT HOME W/O RXN Past Med/Surg History Medical History (Updated 06/25/19 @ 23:57 by Elías Walker MD) Breast cancer (Resolved) CVA (cerebral vascular accident) Diet-controlled type 2 diabetes mellitus (Chronic) GERD (gastroesophageal reflux disease) (Chronic) HTN (hypertension) (Chronic) Hypothyroidism (Chronic) Viral upper respiratory illness (Acute) Surgical History H/O mastectomy (Resolved) Family History Other Family history non-contributory Social History (Updated 06/24/19 @ 21:53 by Reena Rapp DO) Preferred Language: Bengali Communication Ability: Effective 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 and A total of 10 systems reviewed and were otherwise negative Physical Exam Vital Signs Vital Signs - 24 hr 06/25/19 01:27 06/25/19 03:42 06/25/19 04:46 Temperature 36.5 C Temperature Source Oral Pulse Rate - Lying Pulse Rate - Sitting Pulse Rate - Standing Pulse Rate Pulse Rate [Finger] Pulse Rate [Left Radial] 65 79 Pulse Rhythm [Finger] Respiratory Rate 20 Blood Pressure - Lying Blood Pressure - Sitting Blood Pressure- Standing Blood Pressure [Left Arm] 192/83 H 194/87 H Blood Pressure Mean [Left Arm] 119 122 Blood Pressure Position [Left Arm] Lying Lying Pulse Oximetry 93 Oxygen Delivery Method Room Air Room Air 06/25/19 05:35 06/25/19 06:02 06/25/19 07:18 Temperature 36.7 C Temperature Source Oral Pulse Rate - Lying Pulse Rate - Sitting Pulse Rate - Standing Pulse Rate 72 Pulse Rate [Finger] 72 Pulse Rate [Left Radial] 81 Pulse Rhythm [Finger] Respiratory Rate 19 Blood Pressure - Lying Blood Pressure - Sitting Blood Pressure- Standing Blood Pressure [Left Arm] 159/103 H 193/90 H Blood Pressure Mean [Left Arm] 121 124 Blood Pressure Position [Left Arm] Semi-fowlers Lying Pulse Oximetry 98 Oxygen Delivery Method Room Air 06/25/19 07:50 06/25/19 09:17 06/25/19 11:29 Temperature 36.7 C Temperature Source Oral Pulse Rate - Lying Pulse Rate - Sitting Pulse Rate - Standing Pulse Rate 73 Pulse Rate [Finger] 89 101 H Pulse Rate [Left Radial] Pulse Rhythm [Finger] Regular Respiratory Rate 20 Blood Pressure - Lying Blood Pressure - Sitting Blood Pressure- Standing Blood Pressure [Left Arm] 136/70 166/85 H Blood Pressure Mean [Left Arm] 92 112 Blood Pressure Position [Left Arm] Lying Pulse Oximetry 96 Oxygen Delivery Method 06/25/19 15:31 06/25/19 15:33 Temperature 36.8 C Temperature Source Oral Pulse Rate - Lying 73 Pulse Rate - Sitting 104 H Pulse Rate - Standing 110 H Pulse Rate Pulse Rate [Finger] 73 Pulse Rate [Left Radial] Pulse Rhythm [Finger] Respiratory Rate 19 Blood Pressure - Lying 133/76 Blood Pressure - Sitting 186/86 H Blood Pressure- Standing 156/96 H Blood Pressure [Left Arm] 133/76 Blood Pressure Mean [Left Arm] 95 Blood Pressure Position [Left Arm] Lying Pulse Oximetry 92 Oxygen Delivery Method Room Air GENERAL: Awake, alert, well-appearing, in no acute distress HENT: Normocephalic, atraumatic. Oropharynx unremarkable. EYES: Normal conjunctiva. Sclera non-icteric. NECK: Supple. No nuchal rigidity. FROM. No JVD. RESPIRATORY: Clear to auscultation. CARDIAC: Regular rate, normal rhythm. Extremities warm and well perfused. Pulses equal. ABDOMEN: Soft, non-distended. No tenderness to palpation. No rebound or gua rding. No masses. RECTAL: Deferred. MUSCULOSKELETAL: Chest examination reveals no tenderness. The back is symmetrical on inspection without obvious abnormality. There is no CVA tenderness to palpation. No joint edema. LOWER EXTREMITIES: Calves are equal size bilaterally and non-tender. No edema. No discoloration. NEURO: Doesn't know the month or where she is. No sensory or motor deficits noted. SKIN: No rash or jaundice noted. Course Course 160: The patient was evaluated in room C09. A complete history and physical exam was performed. 1742: I spoke with the patients family. 1858: I reevaluated the patient. 1925: I spoke with Dr. Lesa Rapp, [facility] hospitalist, about the patients case. She will further evaluate the patient. Administered Medications Aspirin (Ecotrin Ectab) [facility] Stop: 07/25/19 17:59 Last Admin: 06/25/19 19:23 Dose: 81 mg Documented by: [id number] Docusate Sodium (Colace) 100 mg PO BID AMIRA Stop: 07/25/19 20:59 Last Admin: 06/25/19 19:23 Dose: 100 mg Documented by: [id number] Enoxaparin Sodium (Lovenox) 30 mg SQ Q24H AMIRA Stop: 07/25/19 07:59 Last Admin: 06/25/19 07:38 Dose: 30 mg Documented by: [id number] Escitalopram Oxalate (Lexapro Tab) 10 mg PO DAILY AMIRA Stop: 07/25/19 08:59 Last Admin: 06/25/19 07:39 Dose: 10 mg Documented by: [id number] Hydralazine HCl (Hydralazine Hcl) 10 mg IV Q6H PRN PRN Reason: SBP > 180 or DBP > 110 Stop: 07/25/19 04:42 Last Admin: 06/25/19 19:22 Dose: 10 mg Documented by: [id number] Admin: 06/25/19 07:38 Dose: 10 mg Documented by: [id number] Ceftriaxone Sodium 1,000 mg/ (Dextrose) 50 mls @ 100 mls/hr IV Q24H COUNT INCLUDES THE [facility]; Protocol Stop: 06/30/19 17:59 Last Infusion: 06/25/19 20:17 Dose: 0 mls/hr Documented by: [id number] Admin: 06/25/19 19:22 Dose: 100 mls/hr Documented by: [id number] Ioversol (Optiray 320 125ml) 116 ml IV ONCE PRN PRN Reason: Interaction Checking Stop: 06/29/19 19:02 Last Admin: 06/25/19 19:03 Dose: 116 ml Documented by: [id number] Latanoprost (Xalatan Oph) 1 drops OPB HS AMIRA Stop: 07/25/19 20:59 Last Admin: 06/25/19 19:24 Dose: 1 drops Documented by: [id number] Levothyroxine Sodium (Synthroid) 125 mcg PO DAILYBB COUNT INCLUDES THE [facility] Stop: 07/25/19 06:29 Last Admin: 06/25/19 06:01 Dose: 125 mcg Documented by: [id number] Miscellaneous (Order Awaiting Action) 1 ea N/A QS COUNT INCLUDES THE [facility] Stop: 07/25/19 07:59 Last Admin: 06/25/19 19:23 Dose: Not Given Documented by: [id number] Admin: 06/25/19 07:39 Dose: Not Given Documented by: [id number] Discontinued Medications Amlodipine Besylate (Norvasc) 5 mg PO ONE ONE Stop: 06/25/19 20:46 Last Admin: 06/25/19 22:47 Dose: Not Given Documented by: [id number] Celecoxib (Celebrex) 100 mg PO BID AMIRA Stop: 07/25/19 08:59 Last Admin: 06/25/19 07:39 Dose: 100 mg Documented by: [id number] Haloperidol Lactate (Haldol) 1 mg IM NOW STA Stop: 06/25/19 22:13 Last Admin: 06/25/19 22:28 Dose: 1 mg Documented by: [id number] Hydralazine HCl (Hydralazine Hcl) 10 mg IV NOW STA Stop: 06/25/19 01:07 Last Admin: 06/25/19 01:27 Dose: 10 mg Documented by: [id number] Sodium Chloride (Nss 1000ml) 500 mls @ 999 mls/hr IV .Q31M ONE Stop: 06/24/19 16:43 Last Infusion: 06/24/19 17:49 Dose: 0 mls/hr Documented by: [id number] Admin: 06/24/19 17:13 Dose: 999 mls/hr Documented by: [id number] Ceftriaxone Sodium (Rocephin) 2,000 mg in 70 mls @ 140 mls/hr IV NOW STA Stop: 06/24/19 18:08 Last Infusion: 06/24/19 18:31 Dose: 0 mls/hr Documented by: [id number] Admin: 06/24/19 17:49 Dose: 140 mls/hr Documented by: [id number] Sodium Chloride (Nss 1000ml) 1,000 mls @ 80 mls/hr IV .[id number] AMIRA Stop: 06/26/19 01:11 Last Infusion: 06/25/19 18:30 Dose: 0 mls/hr Documented by: [id number] Admin: 06/25/19 12:31 Dose: 80 mls/hr Documented by: [id number] Infusion: 06/25/19 12:31 Dose: 80 mls/hr Documented by: [id number] Admin: 06/25/19 01:15 Dose: 80 mls/hr Documented by: [id number] Lisinopril (Zestril) 2.5 mg PO DAILY AMIRA Stop: 07/25/19 09:44 Last Admin: 06/25/19 10:18 Dose: 2.5 mg Documented by: [id number] Medical Decision Making Differential Diagnosis Differential diagnoses includes but is not limited to toxic, metabolic, infectious, traumatic, cardiac, neurologic, hematologic, psychiatric and inflammatory etiologies. Medical Records Attestation: I reviewed the patient's medical records. Home Medications Current Medication List: was personally reviewed by me Laboratory Data Attestation: I reviewed the patient's lab results. Result diagrams: 06/25/19 06:21 06/25/19 06:21 Lab Results 06/24/19 06/24/19 06/24/19 Range/Units 17:05 17:15 17:15 WBC 8.09 (4.8-10.8) K/uL RBC 4.24 (4.2-5.4) M/uL Hgb 13.1 (12.0-16.0) g/dL Hct 38.3 (37-47) % MCV 90.3 (80-100) fL MCH 30.9 (25-34) pg MCHC 34.2 (32-36) g/dL RDW Std Deviation 41.4 (36.4-46.3) fL RDW Coeff of Rogelio 12.6 (11.5-14.5) % Plt Count 249 (130-400) K/uL MPV 9.6 (7.4-10.4) fL Immature Gran % (Auto) 0.1 % Neut % (Auto) 77.7 % Lymph % (Auto) 11.1 % [place] % (Auto) 8.9 % Eos % (Auto) 1.5 % Baso % (Auto) 0.7 % Immature Gran # (Auto) 0.01 (0.00-0.02) K/uL Neut # (Auto) 6.28 (1.4-6.5) K/uL Lymph # (Auto) 0.90 L (1.2-3.4) K/uL [place] # (Auto) 0.72 H (0.11-0.59) K/uL Eos # (Auto) 0.12 (0-0.5) K/uL Baso # (Auto) 0.06 (0-0.2) K/uL Sodium 138 (136-145) mmol/L Potassium 3.6 (3.5-5.1) mmol/L Chloride 106 (98-107) mmol/L Carbon Dioxide 26 (21-32) mmol/L Anion Gap 6.0 (3-11) BUN 39 H (7-18) mg/dl Creatinine 1.76 H (0.6-1.2) mg/dl Est Cr Clr Drug Dosing 24.9 ml/min Est GFR ( Amer) 30.7 Est GFR (Non-Af Amer) 26.5 BUN/Creatinine Ratio 22.2 H (10-20) Glucose 161 H (70-99) mg/dl Calcium 9.8 (8.5-10.1) mg/dl Phosphorus 2.2 L (2.5-4.9) mg/dl Magnesium 2.3 (1.8-2.4) mg/dl Total Bilirubin 0.5 (0.2-1) mg/dl AST 14 L (15-37) U/L ALT 16 (12-78) U/L Alkaline Phosphatase 61 (45-117) U/L Total Creatine Kinase 56 (26-192) U/L Troponin I < 0.015 (0-0.045) ng/ml Total Protein 6.8 (6.4-8.2) gm/dl Albumin 3.6 (3.4-5.0) gm/dl Globulin 3.2 (2.5-4.0) gm/dl Albumin/Globulin Ratio 1.1 (0.9-2) Vitamin B12 (211-911) pg/ml Folate (>5.38) ng/ml TSH 1.770 (0.300-4.500) uIu/ml Urine Color Dark Yellow Urine Appearance Cloudy A (Clear) Urine pH 5.5 (4.5-7.5) Ur Specific [place] 1.018 (1.000-1.030) Urine Protein Negative (Negative) Urine Glucose (UA) Negative (Negative) Urine Ketones Negative (Negative) Urine Blood Negative (Negative) Urine Nitrite Positive A (Negative) Urine Bilirubin Negative (Negative) Urine Urobilinogen Negative (Negative) Ur Leukocyte Esterase Negative (Negative) Urine WBC (Auto) 1-5 (0-5) /hpf Urine RBC (Auto) 0-4 (0-4) /hpf U Hyaline Cast (Auto) 1-5 (0-5) /lpf U Epithel Cells (Auto) 10-20 H (0-5) /lpf Urine Bacteria (Auto) 4+ H (Negative) Lyme Disease IgG Ab (Negative) Lyme Disease IgM Ab (Negative) 06/24/19 06/25/19 06/25/19 Range/Units 17:15 06:21 06:21 WBC 7.88 (4.8-10.8) K/uL RBC 4.29 (4.2-5.4) M/uL Hgb 13.8 (12.0-16.0) g/dL Hct 38.4 (37-47) % MCV 89.5 (80-100) fL MCH 32.2 (25-34) pg MCHC 35.9 (32-36) g/dL RDW Std Deviation 40.9 (36.4-46.3) fL RDW Coeff of Rogelio 12.6 (11.5-14.5) % Plt Count 248 (130-400) K/uL MPV 9.5 (7.4-10.4) fL Immature Gran % (Auto) 0.3 % Neut % (Auto) 63.7 % Lymph % (Auto) 20.4 % [place] % (Auto) 11.4 % Eos % (Auto) 3.2 % Baso % (Auto) 1.0 % Immature Gran # (Auto) 0.02 (0.00-0.02) K/uL Neut # (Auto) 5.02 (1.4-6.5) K/uL Lymph # (Auto) 1.61 (1.2-3.4) K/uL [place] # (Auto) 0.90 H (0.11-0.59) K/uL Eos # (Auto) 0.25 (0-0.5) K/uL Baso # (Auto) 0.08 (0-0.2) K/uL Sodium 142 (136-145) mmol/L Potassium 3.3 L (3.5-5.1) mmol/L Chloride 111 H (98-107) mmol/L Carbon Dioxide 27 (21-32) mmol/L Anion Gap 4.0 (3-11) BUN 31 H (7-18) mg/dl Creatinine 1.20 D (0.6-1.2) mg/dl Est Cr Clr Drug Dosing 36.5 ml/min Est GFR ( Amer) 48.7 Est GFR (Non-Af Amer) 42.1 BUN/Creatinine Ratio 25.8 H (10-20) Glucose 94 (70-99) mg/dl Calcium 9.1 (8.5-10.1) mg/dl Phosphorus (2.5-4.9) mg/dl Magnesium (1.8-2.4) mg/dl Total Bilirubin (0.2-1) mg/dl AST (15-37) U/L ALT (12-78) U/L Alkaline Phosphatase (45-117) U/L Total Creatine Kinase (26-192) U/L Troponin I (0-0.045) ng/ml Total Protein (6.4-8.2) gm/dl Albumin (3.4-5.0) gm/dl Globulin (2.5-4.0) gm/dl Albumin/Globulin Ratio (0.9-2) Vitamin B12 (211-911) pg/ml Folate (>5.38) ng/ml TSH (0.300-4.500) uIu/ml Urine Color Urine Appearance (Clear) Urine pH (4.5-7.5) Ur Specific [place] (1.000-1.030) Urine Protein (Negative) Urine Glucose (UA) (Negative) Urine Ketones (Negative) Urine Blood (Negative) Urine Nitrite (Negative) Urine Bilirubin (Negative) Urine Urobilinogen (Negative) Ur Leukocyte Esterase (Negative) Urine WBC (Auto) (0-5) /hpf Urine RBC (Auto) (0-4) /hpf U Hyaline Cast (Auto) (0-5) /lpf U Epithel Cells (Auto) (0-5) /lpf Urine Bacteria (Auto) (Negative) Lyme Disease IgG Ab Negative (Negative) Lyme Disease IgM Ab Negative (Negative) 06/25/19 Range/Units 06:21 WBC (4.8-10.8) K/uL RBC (4.2-5.4) M/uL Hgb (12.0-16.0) g/dL Hct (37-47) % MCV (80-100) fL MCH (25-34) pg MCHC (32-36) g/dL RDW Std Deviation (36.4-46.3) fL RDW Coeff of Rogelio (11.5-14.5) % Plt Count (130-400) K/uL MPV (7.4-10.4) fL Immature Gran % (Auto) % Neut % (Auto) % Lymph % (Auto) % [place] % (Auto) % Eos % (Auto) % Baso % (Auto) % Immature Gran # (Auto) (0.00-0.02) K/uL Neut # (Auto) (1.4-6.5) K/uL Lymph # (Auto) (1.2-3.4) K/uL [place] # (Auto) (0.11-0.59) K/uL Eos # (Auto) (0-0.5) K/uL Baso # (Auto) (0-0.2) K/uL Sodium (136-145) mmol/L Potassium (3.5-5.1) mmol/L Chloride (98-107) mmol/L Carbon Dioxide (21-32) mmol/L Anion Gap (3-11) BUN (7-18) mg/dl Creatinine (0.6-1.2) mg/dl Est Cr Clr Drug Dosing ml/min Est GFR ( Amer) Est GFR (Non-Af Amer) BUN/Creatinine Ratio (10-20) Glucose (70-99) mg/dl Calcium (8.5-10.1) mg/dl Phosphorus (2.5-4.9) mg/dl Magnesium (1.8-2.4) mg/dl Total Bilirubin (0.2-1) mg/dl AST (15-37) U/L ALT (12-78) U/L Alkaline Phosphatase (45-117) U/L Total Creatine Kinase (26-192) U/L Troponin I (0-0.045) ng/ml Total Protein (6.4-8.2) gm/dl Albumin (3.4-5.0) gm/dl Globulin (2.5-4.0) gm/dl Albumin/Globulin Ratio (0.9-2) Vitamin B12 693 (211-911) pg/ml Folate 12.95 (>5.38) ng/ml TSH (0.300-4.500) uIu/ml Urine Color Urine Appearance (Clear) Urine pH (4.5-7.5) Ur Specific [place] (1.000-1.030) Urine Protein (Negative) Urine Glucose (UA) (Negative) Urine Ketones (Negative) Urine Blood (Negative) Urine Nitrite (Negative) Urine Bilirubin (Negative) Urine Urobilinogen (Negative) Ur Leukocyte Esterase (Negative) Urine WBC (Auto) (0-5) /hpf Urine RBC (Auto) (0-4) /hpf U Hyaline Cast (Auto) (0-5) /lpf U Epithel Cells (Auto) (0-5) /lpf Urine Bacteria (Auto) (Negative) Lyme Disease IgG Ab (Negative) Lyme Disease IgM Ab (Negative) Imaging Data Radiologist's Impression: Radiology results as stated below per my review and the radiologist's interpretation: SINGLE VIEW CHEST CLINICAL HISTORY: Generalized weakness. FINDINGS: An AP, portable, upright chest radiograph is compared to study dated 11/25/2017. The examination is degraded by portable technique and patient rot ation. The cardiomediastinal silhouette is unremarkable noting atherosclerotic calcification of the thoracic aorta. Chronic interstitial thickening and elevation of the left hemidiaphragm are similar to previous. No airspace consolidation or large pleural effusion is identified. Foci of linear atele ctasis are noted at the left lung base. No pneumothorax is seen. The skeletal structures are osteopenic. The bony thorax is grossly intact. Advanced degenerative change is noted in the shoulders. Surgical clips are seen in the right axilla. IMPRESSION: No active disease in the chest. Electronically signed by: Sánchez Ramirez M.D. 06/24/2019 4:[address] SCAN OF THE BRAIN WITHOUT IV CONTRAST CLINICAL HISTORY: Change in mental status. COMPARISON STUDY: CT of the brain dated 11/25/2017. TECHNIQUE: Unenhanced axial CT scan of the brain is performed from the vertex to the skull base. A dose lowering technique was utilized adhering to the principles of ALARA. CT DOSE: 580.48 mGy.cm FINDINGS: Brain parenchyma: There are age-related involutional changes noting advanced confluent subcortical and periventricular microangiopathic change. There is no hemorrhage, mass effect, or evidence of acute territorial ischemia by CT criteria. 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 A small chronic lacunar infarct is also noted in the right cerebellar hemisphere. A small arachnoid cyst is noted in the anterior temporal fossa on the left measuring up to 3 cm. Cruz-white matter differentiation is preserved. No extra- axial fluid collection is seen. Ventricles, sulci, cisterns: Prominent secondary to involutional change. Intracranial vasculature: There is atherosclerotic calcification of the cavernous carotid and vertebral arteries. Calvarium: Foci of hyperostosis are again noted. The calvarium appears intact. Sinuses and mastoids: There is trace mucosal thickening within the ethmoid sinuses. The remaining visualized paranasal sinuses are clear. The mastoid air cells are well pneumatized. Orbits: The bony orbits are grossly intact. There are bilateral ocular lens implants. IMPRESSION: Senescent changes as above with no hemorrhage, mass effect, or evidence of acute territorial ischemia by CT criteria. Electronically signed by: Sánchez Ramirez M.D. 06/24/2019 6:10 PM ECG Data Attestation: I personally reviewed and interpreted this ECG as follows: Indication: + other (seizure-like activity) Rate (beats per minute): 75 Rhythm: + normal sinus ECG Intervals/blocks: + Left anterior fascicular block ECG ST segments: no ST depression and no ST elevation ECG Findings: + Other (normal axis, old inferior infarct, QTC of 480) Blood Pressure Blood Pressure Findings: Elevated blood pressure Blood Pressure Disposition: further management by hospitalist MDM Narrative This is an 84-year-old female who presents the emergency department for seizure- like activity. Patient is unsure where she does not think she is in [place]. Due to the altered mental status I did discuss the case with the hospitalist service. Patient's blood pressure was slightly elevated here in the emergency department she does not have an elevation in her white blood cell count however does appear to have a urinary tract infection. She was started on IV Rocephin Impression & Plan Dehydration, Altered mental status, UTI (urinary tract infection) Discharge Plan Visit Data *Final* Discharge Date/Time: 06/24/19 22:35 Chief Complaint: Seizure Stated Complaint: SEIZURE ED Provider: Elías Walker Discharge Problem: Dehydration, Altered mental status, UTI (urinary tract infection) Patient Disposition: Admitted As Inpatient Discharge Instructions Interventions: ED Discharge Assessment Last Done: 06/24/19 22:35 Discharge Problem: Altered mental status Qualifiers: Altered mental status type: unspecified Qualified Code(s): R41.82 - Altered mental status, unspecified UTI (urinary tract infection) Qualifiers: Urinary tract infection type: site unspecified Hematuria presence: without hematuria Qualified Code(s): N39.0 - Urinary tract infection, site not specified The scribe's documentation has been prepared under my direction and personally reviewed by me in its entirety. I confirm that the note above accurately ref lects all work, treatment, procedures, and medical decision making performed by me.
[2019-06-25] MEDS ORDERED: ACETAMINOPHEN 500 MG TAB PO PRN (00:12)
[2019-06-25] MEDS ORDERED: DOCUSATE SODIUM 100 MG CAP PO PRN (00:12)
[2019-06-25 00:27] LABS: Magnesium 2.3 mg/dl (1.8-2.4); Phosphorus 2.2 mg/dl (2.5-4.9)
[2019-06-25] MEDS ORDERED: HydrALAZINE HCL 20 MG/ML VIAL IV STA (01:06)
[2019-06-25] MEDS: SODIUM CHLORIDE 0.9% 1000ML 1,000 ML IV SCH ×2 (01:15→12:31)
[2019-06-25] MEDS: LEVOTHYROXINE SODIUM 125 MCG TABLET PO SCH (06:01)
[2019-06-25 06:36] LABS: Basophils # (auto) 0.08 K/uL (0-0.2); Eosinophils # (auto) 0.25 K/uL (0-0.5); Eosinophils % (auto) 3.2 %; Hematocrit (blood only) 38.4 % (37-47); Hemoglobin 13.8 g/dL (12.0-16.0); Immature Granulocytes # (auto) 0.02 K/uL (0.00-0.02); Immature Granulocytes % (auto) 0.3 %; Lymphocytes # (auto) 1.61 K/uL (1.2-3.4); Lymphocytes % (auto) 20.4 %; Mean Corpuscular Hemoglobin 32.2 pg (25-34); Mean Corpuscular Hgb Conc 35.9 g/dL (32-36); Mean Corpuscular Volume 89.5 fL (80-100); Mean Platelet Volume 9.5 fL (7.4-10.4); Monocytes % (auto) 11.4 %; Neutrophils # (auto) 5.02 K/uL (1.4-6.5); Neutrophils % (auto) 63.7 %; Platelet Count 248 K/uL (130-400); RDW Coefficient of Variation 12.6 % (11.5-14.5); RDW Standard Deviation 40.9 fL (36.4-46.3); Red Blood Count 4.29 M/uL (4.2-5.4); White Blood Count 7.88 K/uL (4.8-10.8)
[2019-06-25 07:07] LABS: BUN Creatinine Ratio 25.8 (10-20); Calcium 9.1 mg/dl (8.5-10.1); Creatinine Clr Calc Pharmacy 36.5 ml/min; Est GFR (African American) 48.7; Est GFR (Non-African American) 42.1; Potassium 3.3 mmol/L (3.5-5.1)
[2019-06-25] MEDS: HydrALAZINE HCL 20 MG/ML VIAL IV PRN ×2 (07:38→19:22)
[2019-06-25] MEDS: ENOXAPARIN INJ 30 MG/0.3 ML SYR SQ SCH (07:38)
[2019-06-25] MEDS: VESICARE~ORDER AWAITING ACTION SCH ×2 (07:39→19:23)
[2019-06-25] MEDS: ESCITALOPRAM OXALATE 10 MG TAB PO SCH (07:39)
[2019-06-25 08:23] LABS: Folate (Folic Acid) 12.95 ng/ml (>5.38)
[2019-06-25] MEDS ORDERED: CELECOXIB 100 MG CAP PO SCH (09:00)
--- NOTE | 2019-06-25 17:46 | Hospitalist Progress Note ---
Date of Service June 25, 2019 Assessment & Plan (1) Altered mental status: Acute metabolic encephalopathy Patient presents with confusion after syncopal episode while sitting in a chair. Recurrent syncope as below. endorses that she has had memory deficit and increased confusion over the last 6 months. They currently have an appointment at the end of July to assess for possible dementia with Dr. Bishop--? Neuropsych? Additionally, patient appears to have a UTI and some dehydration which may be adding to confusion. 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 Seems to still be delirius at times, requiring a sitter at nighttime treat for UTI, DANY/dehydration -Delirium prevention strategies with frequent orientation (2) UTI (urinary tract infection): Patient with + UA suggestive of UTI, now Ur cx growing GNR. She is afebrile, hemodynamically stable, nontoxic in appearance. Denies urinary symptoms but seems fairly unreliable Follow culture continue Ceftriaxone 1 g IV daily (3) Syncope: Patient presents with what seems to be a syncopal event at home. She has had multiple events similar in the past. Presently she is hemodynamically stable. EKG with no acute findings Each time describes seems to have been related to either nausea with bad food at a restaurant, getting too hot while at mu-[employer], etc. This time though, was just sitting in her chair, but likely related to UTI, dehydration Orthostatics negative ECHO with preserved EF, mod LVH, no valvular disease -continue tele montoring (4) Dehydration: Patient with mild elevation of BUN and creatinine to 39 and 1.76, respectively. 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 Stable. TSH within normal limits Continue levothyroxine at home dose (8) Diet-controlled type 2 diabetes mellitus: Chronic. Stable. Consistent carb diet as tolerated -check A1C (9) DANY (acute kidney injury): Manager Of Development 1.7 on admission as above, prerenal, now resolved with IVFs (10) Cognitive impairment: Worsening in the last 6 months, with significant senescent changes on CT and old CVAs, suspect vascular dementia -consult Neuro here -seeing Neuropsych soon as outpt -checking MRI brain B12, foalte here normal -check B1 in AM and will need to be followed as outpt (11) DVT prophylaxis: ProphylaxisLovenox 30 CodeDNR/DNI per discussion with patient Dispositioncontinued stay and then Therapy recommending rehab stay--> CM involved, looking into [place] placement Subjective Pt reports "I'm feeling much better." She has no idea why she is in the hospital, but knows she is in a hospital. Then points to the OT and says "see, my strip tank tender came to visit me" and smiles. later at the bedside and reports a long history of memory difficulty with pt that has worsened in the last 6 months. She has a h/o multiple falls and multiple episodes of syncope. He recalls at least 5 in the last year. Each time seems to have been brought on wither by nausea, heat, or one was when they were out shopping together and pt c/o "I'm feeling faint" righ tbefore she passed out. No chest pains or SOB. Yesterday's episode was just while she was sitting in a chair and no recent illness or fevers, but had UTI on admission and DANY. Pt was found ot have [address] head and pt and unaware of this, however she has had numerous falls as per . He has never juan f her in for the falls or for any of the times she passed out. She also has developed a tremor in her left>right thumb/hand in the last few months. Tele with NSR, rates in the 70s Review of Systems Review of Systems: All systems reviewed & are unremarkable except as noted in HPI & below Physical Exam Constitutional: WD/WN, vitals as above Eyes: PERRL, conjunctivae normal, anicteric sclerae EOM intact bilaterally ENMT: external ear and nose normal, oropharynx normal Neck: trachea midline, no thyromegaly Respiratory: normal respiratory effort, lungs clear to auscultation Cardiovascular: RRR, no murmur, no edema Chest (Breasts): Chest: normal inspection of chest Gastrointestinal (Abdomen): normal bowel sounds, soft, nontender, no hepatosplenomegaly Musculoskeletal: Extremities: extremities normal to inspection; no cyanosis and no clubbing Skin: no rashes, warm and dry Neurologic: PERRL, EOMI, accommodation nl, no face palsy, no dysarthria CN's II-XI intact bilaterally, deep tendon reflexes 2+ bilaterally (except 3+ Left patellar and 4 beat clonus left ankle), moves all extremities, awake and + confused; no focal motor deficits (5/5 strenght throughout) Speech / Cognition: + abnormal cognition; normal speech and no expressive aphasia Motor/Sensory: + tremor (left thumb with fine resting tremor); no pronator drift and no sensory deficit Coordination: normal [id number]-nr-[id number] test, normal wtfm-ls-[id number] test and normal rapid alternating movements Psychiatric: Orientation: alert, oriented to person, oriented to place ("[facility], somewhere between [place] and [place]") and cooperative; + not oriented to time (year 2019,Month Jul, Date "the or ") Apperance: appropriately dressed and appropriately groomed Speech: normal rate/rhythm/volume of speech Affect: euthymic affect Cognition: remote memory grossly intact; + recent memory not intact Insight: + poor insight Lymphatic: no lymphedema Results & Data Vital Signs (Past 12 Hours) Vital Signs Temp Pulse Pulse Pulse Resp BP Pulse Ox 06/25/19 15:33 36.8 C 73 19 133/76 92 06/25/19 11:29 36.7 C 101 H 20 166/85 H 96 06/25/19 09:17 89 136/70 06/25/19 07:50 73 06/25/19 07:18 36.7 C 72 19 193/90 H 98 06/25/19 06:02 81 159/103 H Laboratory Results 06/25/19 Range/Units 06:21 Vitamin B12 693 (211-911) pg/ml Folate 12.95 (>5.38) ng/ml CBC negative BMP with stylist apprentice improved down to 1.2, K+ 3.3 LFTs negative Trop neg Ur cx GNR PG Care Time/CCT Total # of Minutes Spent Total Time Spent with Patient: Total time spent is greater than 50% in coordination of care (as documented) at patient's floor/unit and/or counseling patient: (1) UTI (urinary tract infection) Hematuria presence: without hematuria Urinary tract infection type: acute cystitis Qualified Code(s): N30.00 - Acute cystitis without hematuria (2) Hypothyroidism Hypothyroidism type: unspecified Qualified Code(s): E03.9 - Hypothyroidism, unspecified (3) Syncope Syncope type: unspecified Qualified Code(s): R55 - Syncope and collapse (4) Altered mental status Altered mental status type: disorientation Qualified Code(s): R41.0 - Disorientation, unspecified (5) HTN (hypertension) Hypertension type: essential hypertension Qualified Code(s): I10 - Essential (primary) hypertension
[2019-06-25] MEDS ORDERED: OPTIRAY 320 125ml IV PRN (19:03)
--- NOTE | 2019-06-25 19:17 | CT Scan Report ---
CT angio head w con HISTORY: Mental status change history of CVA, syncope TECHNIQUE: Multiaxial CT angiography of the head was performed IV contrast: 100 cc Maximum intensi ty projection images were also obtained. A dose lowering technique was utilized adhering to the prin ciples of BROWN. COMPARISON: None FINDINGS: There is no mass, hematoma, midline shift, or acute infarct. Age-related change is noted wi th these findings unaltered from the prior exam. Visualized intracranial internal carotid arteries, d istal vertebral arteries, and basilar artery are widely patent. There is no significant stenosis, occ lusion, or aneurysm seen within the bilateral ACAs, MCAs, or oracle adf consultant. There is a dominant left vertebral artery. Right vertebral artery is smaller on a congenital basis with evidence for 50% narrowing at i ts distal aspect. The left vertebral again is dominant and generally ectatic and large in caliber com pared to the right. IMPRESSION: No significant stenosis, occlusion, or aneurysm within the mechoopda of [place]. 50% narrowing distal rig ht vertebral artery. 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 The above report was generated using voice recognition software. It may contain grammatical, syntax or spelling errors. Electronically signed by: Zeke Vásquez M.D. 06/25/2019 7:15 PM
[2019-06-25] MEDS: cefTRIAXone SODIUM 1,000 MG in DEXTROSE 5% 50 ML IV SCH (19:22)
[2019-06-25] MEDS: DOCUSATE SODIUM 100 MG CAP PO SCH (19:23)
[2019-06-25] MEDS: ASPIRIN 81 MG ECTAB PO SCH (19:23)
--- NOTE | 2019-06-25 19:23 | CT Scan Report ---
CT angio neck with con HISTORY: Mental status change history of CVA, recurrent syncope TECHNIQUE: Multiaxial CT angiography of the neck was performed IV contrast: 100 cc nonionic All poornima urements were calculated based on NASCET criteria. Maximum intensity projection images were also obt ained. A dose lowering technique was utilized adhering to the principles of ALARA. COMPARISON STUDY: None. FINDINGS: The aortic arch demonstrates generalized ectasia, lobulation and atherosclerotic change. Mi ld chronic interstitial change overlying the pulmonary apices. There are minimal to mild plaque formation changes of the carotid bifurcations. There is no significa nt stenotic process. The left vertebral artery again is dominant and generally ectatic compared to the right. This asymmet ry persists to the level of the posterior clivus with continuation considered to be the basilar arter y.. 50% narrowing of the distal right vertebral is again noted. There are findings of mild plaque formation at the carotid bifurcations bilaterally. No evidence for significant stenotic process. IMPRESSION: 1. Minimal to mild plaque formation of the carotid bifurcations. 2. No evidence for significant stenotic process. 3. Small caliber right vertebral compared to a dominant left. 4. 50% narrowing distal right vertebral artery at its juncture with the basilar artery. 5. Dominant and ectatic left vertebral with continuation to the basilar. This most likely is due to a natomic variation The above report was generated using voice recognition software. It may contain grammatical, syntax or spelling errors. Electronically signed by: Zeke Vásquez M.D. 06/25/2019 7:22 PM
[2019-06-25] MEDS: LATANOPROST 0.005% OP SOLN 2.5 ML BTL OPB SCH (19:24)
[2019-06-25] MEDS ORDERED: AMLODIPINE BESYLATE 5 MG TAB PO ONE (20:45)
[2019-06-25] MEDS ORDERED: HALOPERIDOL LACTATE 5 MG/ML 1 ML VIAL IM STA (22:12)
[2019-06-25] MEDS ORDERED: cloNIDine HCL 0.1 MG TAB PO PRN (22:50)
[2019-06-26] MEDS: VESICARE~ORDER AWAITING ACTION SCH ×3 (01:31→17:35)
[2019-06-26] MEDS ORDERED: HALOPERIDOL LACTATE 5 MG/ML 1 ML VIAL IM STA (02:59)
[2019-06-26] MEDS: LEVOTHYROXINE SODIUM 125 MCG TABLET PO SCH ×2 (05:48→06:20)
[2019-06-26] MEDS: ENOXAPARIN INJ 30 MG/0.3 ML SYR SQ SCH (08:08)
[2019-06-26] MEDS: AMLODIPINE BESYLATE 5 MG TAB PO SCH (08:09)
[2019-06-26] MEDS: lisinopriL 10 MG TAB PO SCH (08:09)
[2019-06-26] MEDS: ASPIRIN 81 MG ECTAB PO SCH (08:10)
[2019-06-26] MEDS: DOCUSATE SODIUM 100 MG CAP PO SCH ×2 (08:10→22:05)
[2019-06-26] MEDS: ESCITALOPRAM OXALATE 10 MG TAB PO SCH (08:10)
[2019-06-26 08:49] LABS: BUN Creatinine Ratio 27.2 (10-20); Calcium 9.2 mg/dl (8.5-10.1); Creatinine Clr Calc Pharmacy 39.1 ml/min; Est GFR (Non-African American) 45.7; Potassium 3.7 mmol/L (3.5-5.1)
[2019-06-26 09:19] LABS: Estimated Average Glucose 117 mg/dl; Hemoglobin A1C 5.7 % (4.5-5.6)
[2019-06-26] MEDS: POTASSIUM CHLORIDE 10 MEQ in SODIUM CHLORIDE 0.9% 1000ML 1,000 ML IV SCH (13:34)
--- NOTE | 2019-06-26 14:49 | Hospitalist Progress Note ---
Date of Service June 26, 2019 Assessment & Plan (1) Altered mental status: Acute metabolic encephalopathy Patient presents with confusion after syncopal episode while sitting in a chair. Recurrent syncope as below. endorses that she has had memory deficit and increased confusion over the last 6 months. They currently have an appointment at the end of July to assess for possible dementia with Dr. Bishop--? Neuropsych? 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 use Haldol PRN will try for MRI brain if she can lay still neurology consult pending (2) DANY (acute kidney injury): Transmission Specialist 1.7 on admission as above, prerenal resolved with IV fluids would stop the fluids but patient not eating or drinking enough continue NSS at 75cc/hr (3) UTI (urinary tract infection): Patient with + UA suggestive of UTI, now Ur cx growing E coli, noel sensitive continue Rocephin afebrile, WBC normal, but no improvement in mental status (4) Syncope: Patient presents with what seems to be a syncopal event at home. She has had multiple events similar in the past. she has been hemodynamically stable. 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 Stable. TSH within normal limits Continue levothyroxine at home dose (9) Diet-controlled type 2 diabetes mellitus: Chronic. Stable. Consistent carb diet as tolerated -check A1C = 5.7%, at goal (10) Cognitive impairment: Worsening in the last 6 months, with significant senescent changes on CT and old CVAs, suspect vascular dementia -consult Neuro, pending -seeing Neuropsych soon as outpt -checking MRI brain if she can tolerate B12, folate normal (11) DVT prophylaxis: ProphylaxisLovenox 30 CodeDNR/DNI per discussion with patient Dispositioncontinued stay and then Therapy recommending rehab stay--> CM involved, looking into [place] placement Subjective patient confused this afternoon this is new finding, according to RN she was cooperative, ate breakfast, took all her medications she did not want to eat any lunch I met with patient, she initially would not look at me or talk to me with her family at the bedside, she told me that I was what was bothering her, that I was "fake" she said that everyone was telling her lies, she was not in the hospital she did not know where she was, the date or month or year, could not say her 's name her was concerned about the situation, she has never been this confused or aggitated he has noticed memory issues and weakness for a few months, scheduled to see a neuropsychologist as outpatient reviewed chart and recent labs Cr improved to 1.1, DANY resolved urine culture with E coli, noel sensitive so Rocephin should be working MRI brain ordered, discussed with RN that she may not be able to lay still Review of Systems Review of Systems: Unobtainable due to mental health condition (agitated, confuse, not answering questions) Physical Exam Constitutional: WD/WN, vitals as above Eyes: PERRL, conjunctivae normal, anicteric sclerae ENMT: external ear and nose normal, oropharynx normal Neck: trachea midline, no thyromegaly Respiratory: normal respiratory effort, lungs clear to auscultation Cardiovascular: RRR, no murmur, no edema Gastrointestinal (Abdomen): normal bowel sounds, soft, nontender, no hepatosplenomegaly Musculoskeletal: no cyanosis or clubbing, extremities motor strength 5/5 Skin: no rashes, warm and dry Neurologic: patellar DTR's 2+ bilat, sensation intact and PERRL, EOMI, accommodation nl, no face palsy, no dysarthria Psychiatric: Orientation: alert and + guarded (agitated); + not oriented to place Mood: + anxious mood and + irritable mood Thought Content: + delusions Cognition: + recent memory not intact Lymphatic: no cervical or axillary lymphadenopathy Results & Data Vital Signs (Past 12 Hours) Vital Signs Temp Pulse Pulse Resp BP Pulse Ox 06/26/19 11:11 96 06/26/19 07:21 74 06/26/19 06:35 36.3 C L 76 20 163/97 H 95 Laboratory Results Laboratory Results - last 24 hr 06/26/19 06/26/19 06/26/19 07:46 07:46 07:46 Sodium 140 Potassium 3.7 Chloride 111 H Carbon Dioxide 21 Anion Gap 8.0 BUN 31 H Creatinine 1.12 Est Cr Clr Drug Dosing 39.1 Est GFR ( Amer) 53.0 Est GFR (Non-Af Amer) 45.7 BUN/Creatinine Ratio 27.2 H Glucose 97 Estimat Average Glucose 117 Hemoglobin A1c 5.7 H Calcium 9.2 Triglycerides 105 Cholesterol 155 LDL Cholesterol, Calc 96 VLDL Cholesterol, Calc 21 HDL Cholesterol 38 Cholesterol/HDL Ratio 4 Whole Bld Vitamin B1 Pending Microbiology 06/24/19 17:05 Urine,Straight Cath Urine Culture - Final Escherichia coli Medications Administered Current Inpatient Medications Acetaminophen (Tylenol) 1,000 mg PO QPM PRN PRN Reason: Pain Stop: 07/25/19 00:11 Amlodipine Besylate (Norvasc) 5 mg PO QAM [facility] Stop: 07/26/19 08:59 Last Admin: 06/26/19 08:09 Dose: 5 mg Documented by: Aspirin (Ecotrin Ectab) 81 mg PO QAM [facility] Stop: 07/25/19 17:59 Last Admin: 06/26/19 08:10 Dose: 81 mg Documented by: Clonidine HCl (Catapres) 0.1 mg PO Q8H PRN PRN Reason: Hypertension Stop: 07/25/19 22:49 Docusate Sodium (Colace) 100 mg PO BID [facility] Stop: 07/25/19 20:59 Last Admin: 06/26/19 08:10 Dose: 100 mg Documented by: Enoxaparin Sodium (Lovenox) 30 mg SQ Q24H [facility] Stop: 07/25/19 07:59 Last Admin: 06/26/19 08:08 Dose: 30 mg Documented by: Escitalopram Oxalate (Lexapro Tab) 10 mg PO DAILY [facility] Stop: 07/25/19 08:59 Last Admin: 06/26/19 08:10 Dose: 10 mg Documented by: Haloperidol Lactate (Haldol) 5 mg IM Q6H PRN PRN Reason: Anxiety/Agitation Stop: 07/26/19 19:47 Hydralazine HCl (Hydralazine Hcl) 10 mg IV Q6H PRN PRN Reason: SBP > 180 or DBP > 110 Stop: 07/25/19 04:42 Last Admin: 06/25/19 19:22 Dose: 10 mg Documented by: Ceftriaxone Sodium 1,000 mg/ (Dextrose) 50 mls @ 100 mls/hr IV Q24H [facility]; Protocol Stop: 06/30/19 17:59 Last Infusion: 06/26/19 18:30 Dose: Infused Documented by: Potassium Chloride 10 meq/ (Sodium Chloride) 1,005 mls @ 75 mls/hr IV .[id number] [facility] Stop: 07/26/19 12:59 Last Admin: 06/26/19 13:34 Dose: 75 mls/hr Documented by: Ioversol (Optiray 320 125ml) 116 ml IV ONCE PRN PRN Reason: Interaction Checking Stop: 06/29/19 19:02 Last Admin: 06/25/19 19:03 Dose: 116 ml Documented by: Latanoprost (Xalatan Oph) 1 drops OPB HS [facility] Stop: 07/25/19 20:59 Last Admin: 06/25/19 19:24 Dose: 1 drops Documented by: Levothyroxine Sodium (Synthroid) 125 mcg PO DAILYBB [facility] Stop: 07/25/19 06:29 Last Admin: 06/26/19 06:20 Dose: 125 mcg Documented by: Lisinopril (Zestril) 10 mg PO DAILY [facility] Stop: 07/26/19 08:59 Last Admin: 06/26/19 08:09 Dose: 10 mg Documented by: Miscellaneous (Order Awaiting Action) 1 ea N/A QS [facility] Stop: 07/25/19 07:59 Last Admin: 06/26/19 17:35 Dose: Not Given Documented by: PG Care Time/CCT Total # of Minutes Spent Total Time Spent with Patient: Total time spent is greater than 50% in coordin ation of care (as documented) at patient's floor/unit and/or counseling patient: (1) UTI (urinary tract infection) Hematuria presence: without hematuria Urinary tract infection type: site unspecified Qualified Code(s): N39.0 - Urinary tract infection, site not specified (2) Hypothyroidism Hypothyroidism type: unspecified Qualified Code(s): E03.9 - Hypothyroidism, unspecified (3) Syncope Syncope type: unspecified Qualified Code(s): R55 - Syncope and collapse (4) Altered mental status Altered mental status type: unspecified Qualified Code(s): R41.82 - Altered mental status, unspecified (5) HTN (hypertension) Hypertension type: essential hypertension Qualified Code(s): I10 - Essential (primary) hypertension
[2019-06-26] MEDS: cefTRIAXone SODIUM 1,000 MG in DEXTROSE 5% 50 ML IV SCH (17:57)
[2019-06-26] MEDS ORDERED: HALOPERIDOL LACTATE 5 MG/ML 1 ML VIAL IM PRN (19:48)
[2019-06-26] MEDS: LATANOPROST 0.005% OP SOLN 2.5 ML BTL OPB SCH (22:05)
--- NOTE | 2019-06-26 23:02 | Neurology Consultation ---
Date of Consultation June 26, 2019 Assessment & Plan (1) Cognitive impairment: (2) Altered mental status: (3) Syncope: (4) CVA (cerebral vascular accident): (5) UTI (urinary tract infection): Patient is a 84 yof with a PMHx of HTN, DM, CVA, Breast CA, hypothyroidism, cognitive impairment, and recurrent syncope presenting to [facility] after a syncopal event. #AMS: most likely 2/2 UTI and dehydration, improving per family. -f/u on thiamine, rec sending ammonia level -UTI abx and hydration per primary team -delirium precautions- lights on during day, off at night, frequent reorientation, avoid antipsychotics/BZD/Opioids as able #syncope: unclear if behavior 2/2 dementia vs syncope from underlaying arrhythmia, much less likely seizure -rec Holter on dc, consider 30 day event monitor -EEG if patient not back to baseline on 06/27 (she can have outpatient EEG if stable for discharge) #Mild cognitive impairment: B12, TSH wnl. -She is scheduled for neuropsychiatric testing which she should continue to keep -MRI brain w/o if patient able to tolerate, if unable no further imaging is needed acutely. #L cerebellar stroke, chronic- -MRI brain w/o if patient able to tolerate, if unable no further imaging is needed acutely. -continue ASA 81 daily, consider atorvastatin 40mg daily -f/u with PCP regarding stroke prevention goals, A1c <7, BP <135/85, LDL <70 Please call with questions. History of Present Illness Attending Physician: Mejia Vega, History of Present Illness Patient is a 84 yof with a PMHx of HTN, DM, CVA, Breast CA, hypothyroidism, cognitive impairment, and recurrent syncope presenting to [facility] after a syncopal event. History obtained from . Patient was seated in a chair and slumped over for 10 minutes. He reports eyes were open and she was unresponsive (both vocal and physical stimulation). Denies any loss of bowel or bladder, tongue bitting, or convulsive movements. Has had several similar events in the past without confirmed etiology. Patient was able to say that she was feeling fine before event and denied any CP, palpations, or abnormal sensations. 14 point review of systems completed and negative except as in HPI.positive for gait imbalance and using walker more frequent at home, dizziness with prolonged standing, urinary incontinence x 1 year, memory issues for 6 mo, hallucinations, and occasional resting tremor. Family reports an outpatient appointment next month for dementia testing. Labs notable for A1c 5.7, LDL 96, Cr1.76 --> 1.2, B12 683, Folate 12.95, Tsh wnl, Lyme neg, UA + for infection. CTH with generalized atrophy with ex vacuo dilation and moderate to sever small vessel disease. Evidence of a old L cerebellar infarct. L anterior temporal arachnoid cyst noted. 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 Thiamine pending Allergies Allergy/AdvReac Type Severity Reaction Status Date / Time Sulfa (Sulfonamide Allergy Unknown TAKES Verified 06/24/19 16:51 Antibiotics) DYAZIDE AT HOME W/O RXN Home Medications Home Medications Medication Instructions Recorded Confirmed Type acetaminophen 1,000 mg PO QPM PRN 02/01/19 06/24/19 History celecoxib 100 mg PO BID 02/01/19 06/24/19 History cholecalciferol (vitamin D3) 2,000 unit PO QPM 02/01/19 06/24/19 History [Vitamin D3] latanoprost 1 drp OPB HS 02/01/19 06/24/19 History levothyroxine 125 mcg PO QAM 02/01/19 06/24/19 History meclizine [Motion Sickness 25 mg PO TID PRN 02/01/19 06/24/19 History (meclizine)] alendronate 70 mg PO WK 06/24/19 06/24/19 History escitalopram oxalate 10 mg PO DAILY 06/24/19 06/24/19 History lisinopril 2.5 mg PO DAILY 06/24/19 06/24/19 History solifenacin 5 mg PO DAILY 06/24/19 06/24/19 History Patient History Medical History (Updated 06/26/19 @ 23:08 by Manisha Avina MD) Breast cancer (Resolved) Cognitive impairment CVA (cerebral vascular accident) Diet-controlled type 2 diabetes mellitus (Chronic) GERD (gastroesophageal reflux disease) (Chronic) HTN (hypertension) (Chronic) Hypothyroidism (Chronic) Viral upper respiratory illness (Acute) Surgical History H/O mastectomy (Resolved) Family History Other Family history non-contributory Social History (Updated 06/24/19 @ 21:53 by Reena Rapp DO) Preferred Language: [place] Communication Ability: Effective Conveyor Operator Required: No Beliefs That Will Affect Care: None marital status: Current Living Situation: Spouse current occupational status: retired Feels Safe at Home: Yes Safety Concerns: Feels Safe At This Time Smoking Status: Never smoker Hx Alcohol Use: No Hx Substance Use: No Review of Systems Review of Systems: Unobtainable due to cognitive status Physical Exam Physical Exam: General Exam: GEN: NAD, sitting in chair. HEENT: No conjunctival injection, no rhinorrhea. CV: RRR, no peripheral edema PULM: Nonlabored respirations on room air. Neuro Exam: MS: Awake and Alert. Oriented to person and place; not date. Speech fluent and appropriate without dysarthria or paraphasic errors. Language intact including naming, comprehension, repetition. Cognition and memory grossly intact but unable to give history of present events herself. Inattention. No neglect. CN: Visual aguirre full. No extinction to double simultaneous stimuli. No optic disc not seen due to patient cooperation. PERRLA OU. EOMI without nystagmus. Facial sensation intact to LT. Facial muscles full and symmetric. Hearing intact to conversation. Uvula midline with symmetric palatal elevation. Shoulder shrug normal. Tongue midline. MOTOR: Normal bulk and tone. No pronator drift. BUE strength 5-/5 at deltoids, biceps, triceps, wrist flexors and extensors, and finger flexors bilaterally. BLE strength 4+/5 at iliopsoas, hamstrings, quadriceps, and 5-/5 tibialis anterior, and gastrocnemius bilaterally. REFLEXES: 2+ at biceps, triceps, brachioradialis, 1+ patella and absent Achilles bilaterally. Flexor plantar responses bilaterally. SENSORY: Intact to LT without extinction to double simultaneous stimuli. Vibration and temperature intact throughout. COORDINATION: No dysmetria or ataxia on [id number]. Normal Carolyn bilaterally. GAIT: Deferred given mental status Results & Data Vital Signs (Past 12 Hours) Vital Signs Temp Pulse Pulse Resp BP Pulse Ox 06/26/19 19:22 36.8 C 81 18 150/81 H 94 06/26/19 18:00 82 11/25/19 15:36 36.8 C 77 20 171/83 H 95 06/26/19 11:11 96 PG Care Time/CCT Total # of Minutes Spent Total Time Spent with Patient: Total time spent is greater than 50% in coordination of care (as documented) at patient's floor/unit and/or counseling patient: (1) Altered mental status Altered mental status type: unspecified Qualified Code(s): R41.82 - Altered mental status, unspecified (2) Syncope Syncope type: unspecified Qualified Code(s): R55 - Syncope and collapse (3) UTI (urinary tract infection) Urinary tract infection type: site unspecified Hematuria presence: without hematuria Qualified Code(s): N39.0 - Urinary tract infection, site not spe cified (4) CVA (cerebral vascular accident) CVA mechanism: unspecified Qualified Code(s): I63.9 - Cerebral infarction, unspecified
[2019-06-27] MEDS: VESICARE~ORDER AWAITING ACTION SCH ×3 (00:05→16:08)
[2019-06-27] MEDS: POTASSIUM CHLORIDE 10 MEQ in SODIUM CHLORIDE 0.9% 1000ML 1,000 ML IV SCH ×2 (03:19→16:08)
[2019-06-27] MEDS: LEVOTHYROXINE SODIUM 125 MCG TABLET PO SCH (06:02)
[2019-06-27] MEDS: lisinopriL 10 MG TAB PO SCH (08:34)
[2019-06-27] MEDS: ESCITALOPRAM OXALATE 10 MG TAB PO SCH (08:34)
[2019-06-27] MEDS: ENOXAPARIN INJ 30 MG/0.3 ML SYR SQ SCH (08:34)
[2019-06-27] MEDS: AMLODIPINE BESYLATE 5 MG TAB PO SCH (08:34)
[2019-06-27] MEDS: ASPIRIN 81 MG ECTAB PO SCH (08:34)
[2019-06-27] MEDS: DOCUSATE SODIUM 100 MG CAP PO SCH ×2 (08:34→21:19)
--- NOTE | 2019-06-27 14:51 | Hospitalist Progress Note ---
Date of Service June 27, 2019 Assessment & Plan (1) Altered mental status: Acute metabolic encephalopathy Patient presents with confusion after syncopal episode while sitting in a chair. Recurrent syncope as below. endorses that she has had memory deficit and increased confusion over the last 6 months. They currently have an appointment at the end of July to assess for possible dementia with Dr. Bishop--? Neuropsych? most likely etiology of encephalopathy is UTI and DANY patient much better today, more cooperative, no delusions B12 and folate normal CT head with senescent changes and no acute intracranial pathology, but with old cerebellar CVAs No new medications or medication changes. 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 She has had multiple events similar in the past. she has been hemodynamically stable. EKG with no acute findings most likely related to dehydration, DANY Orthostatics negative ECHO with preserved EF, mod LVH, no valvular disease -continue tele monitoring for time being if no discharge tomorrow then transfer to medical floor (5) Dehydration: resolved with IV fluids stop fluids today (6) HTN (hypertension): Blood pressures better controlled on Lisinopril 10mg and amlodipine 5mg daily (7) CVA (cerebral vascular accident): 2 old cerebellar CVAs seen on CT head and with multiple falls at home -needs CVA workup which she has never had as never brought her in for one of her events before -check MRI brain if she will lay still CTA head/neck - no acute findings MRI brain, no acute strokes seen -continue ASA 81mg daily lipid panel today shows LDL < 100, HDL only 38 (8) Hypothyroidism: Chronic. Stable. TSH within normal limits Continue levothyroxine at home dose (9) Diet-controlled type 2 diabetes mellitus: Chronic. Stable. Consistent carb diet as tolerated -check A1C = 5.7%, at goal (10) Cognitive impairment: Worsening in the last 6 months, with significant senescent changes on CT and old CVAs, suspect vascular dementia -Neurology consults, Dr. Avina can follow in the clinic in 8-12 weeks -seeing Neuropsych soon as outpt -MRI brain with decreased brain volume B12, folate normal (11) DVT prophylaxis: ProphylaxisLovenox 30 CodeDNR/DNI per discussion with patient Disposition looking into [place] placement, could be d/c tomorrow if mental status remains stable Subjective patient much more pleasant today, answering questions appropriately says she seems to be closer to baseline she admits that she was "not myself yesterday" discussed with Dr. Avina, she still feels that the UTI and DANY most logical explanation can follow up with neurology in 8-10 weeks no labs today as they were normal yesterday discussed going to [place] with , he agrees tomorrow if possible reviewed MRI results, no acute stroke, just showed volume loss consistent with dementia, aging Review of Systems Review of Systems: All systems reviewed & are unremarkable except as noted in HPI & below Respiratory: no cough, no dyspnea and no wheezing Cardiovascular: no chest pain, no palpitations, no syncope and no edema Gastrointestinal: no abdominal pain, no nausea, no vomiting, no constipation and no diarrhea/loose stools Neurologic: + behavioral changes, + confusion and + memory loss; no seizure- like activity Physical Exam Constitutional: WD/WN, vitals as above Eyes: PERRL, conjunctivae normal, anicteric sclerae ENMT: external ear and nose normal, oropharynx normal Neck: trachea midline, no thyromegaly Respiratory: normal respiratory effort, lungs clear to auscultation Cardiovascular: RRR, no murmur, no edema Gastrointestinal (Abdomen): normal bowel sounds, soft, nontender, no hepatosplenomegaly Musculoskeletal: no cyanosis or clubbing, extremities motor strength 5/5 Skin: no rashes, warm and dry Neurologic: patellar DTR's 2+ bilat, sensation intact and PERRL, EOMI, accommodation nl, no face palsy, no dysarthria Psychiatric: Orientation: alert, oriented to person and cooperative; + not oriented to place and + not oriented to time Affect: euthymic affect Cognition: + recent memory not intact Lymphatic: no cervical or axillary lymphadenopathy Results & Data Vital Signs (Past 12 Hours) Vital Signs Temp Pulse Pulse Resp BP Pulse Ox 06/27/19 11:18 36.7 C 70 19 155/84 H 97 06/27/19 08:00 36.4 C L 73 20 151/84 H 97 06/27/19 05:36 78 Diagnostic Findings MRI BRAIN IMPRESSION: 1. No acute intracranial findings 2. No evidence of intracranial mass 3. No evidence of acute or subacute infarction 4. Extensive white matter disease most pronounced in the frontal regions likely on a small vessel basis. 5. Ventricular dilatation likely secondary to volume loss Medications Administered Current Inpatient Medications Acetaminophen (Tylenol) 1,000 mg PO QPM PRN PRN Reason: Pain Stop: 07/25/19 00:11 Amlodipine Besylate (Norvasc) 5 mg PO QAM [facility] Stop: 07/26/19 08:59 Last Admin: 06/27/19 08:34 Dose: 5 mg Documented by: Aspirin (Ecotrin Ectab) 81 mg PO QAM [facility] Stop: 07/25/19 17:59 Last Admin: 06/27/19 08:34 Dose: 81 mg Documented by: Clonidine HCl (Catapres) 0.1 mg PO Q8H PRN PRN Reason: Hypertension Stop: 07/25/19 22:49 Docusate Sodium (Colace) 100 mg PO BID [facility] Stop: 07/25/19 20:59 Last Admin: 06/27/19 08:34 Dose: 100 mg Documented by: Enoxaparin Sodium (Lovenox) 30 mg SQ Q24H [facility] Stop: 07/25/19 07:59 Last Admin: 06/27/19 08:34 Dose: 30 mg Documented by: Escitalopram Oxalate (Lexapro Tab) 10 mg PO DAILY [facility] Stop: 07/25/19 08:59 Last Admin: 06/27/19 08:34 Dose: 10 mg Documented by: Haloperidol Lactate (Haldol) 5 mg IM Q6H PRN PRN Reason: Anxiety/Agitation Stop: 07/26/19 19:47 Hydralazine HCl (Hydralazine Hcl) 10 mg IV Q6H PRN PRN Reason: SBP > 180 or DBP > 110 Stop: 07/25/19 04:42 Last Admin: 06/25/19 19:22 Dose: 10 mg Documented by: Ceftriaxone Sodium 1,000 mg/ (Dextrose) 50 mls @ 100 mls/hr IV Q24H [facility]; Protocol Stop: 06/30/19 17:59 Last Infusion: 06/26/19 18:30 Dose: Infused Documented by: Potassium Chloride 10 meq/ (Sodium Chloride) 1,005 mls @ 75 mls/hr IV .[id number] [facility] Stop: 07/26/19 12:59 Last Admin: 06/27/19 03:19 Dose: 75 mls/hr Documented by: Ioversol (Optiray 320 125ml) 116 ml IV ONCE PRN PRN Reason: Interaction Checking Stop: 06/29/19 19:02 Last Admin: 06/25/19 19:03 Dose: 116 ml Documented by: Latanoprost (Xalatan Oph) 1 drops OPB HS [facility] Stop: 07/25/19 20:59 Last Admin: 06/26/19 22:05 Dose: Not Given Documented by: Levothyroxine Sodium (Synthroid) 125 mcg PO DAILYBB [facility] Stop: 07/25/19 06:29 Last Admin: 06/27/19 06:02 Dose: Not Given Documented by: Lisinopril (Zestril) 10 mg PO DAILY [facility] Stop: 07/26/19 08:59 Last Admin: 06/27/19 08:34 Dose: 10 mg Documented by: Miscellaneous (Order Awaiting Action) 1 ea N/A QS [facility] Stop: 07/25/19 07:59 Last Admin: 06/27/19 08:35 Dose: Not Given Documented by: PG Care Time/CCT Total # of Minutes Spent Total Time Spent with Patient: Total time spent is greater than 50% in coordination of care (as documented) at patient's floor/unit and/or counseling patient: (1) UTI (urinary tract infection) Hematuria presence: without hematuria Urinary tract infection type: site unspecified Qualified Code(s): N39.0 - Urinary tract infection, site not specified (2) Hypothyroidism Hypothyroidism type: unspecified Qualified Code(s): E03.9 - Hypothyroidism, unspecified (3) Syncope Syncope type: unspecified Qualified Code(s): R55 - Syncope and collapse (4) Altered mental status Altered mental status type: unspecified Qualified Code(s): R41.82 - Altered mental status, unspecified (5) HTN (hypertension) Hypertension type: essential hypertension Qualified Code(s): I10 - Essential (primary) hypertension (6) CVA (cerebral vascular accident) CVA mechanism: unspecified Qualified Code(s): I63.9 - Cerebral infarction, unspecified
[2019-06-27] MEDS ORDERED: GADOBUTROL 65ML VIAL IV PRN (15:41)
--- NOTE | 2019-06-27 16:02 | Magnetic Resonance Report ---
MRI OF THE BRAIN WITHOUT AND WITH IV CONTRAST CLINICAL HISTORY: syncope,history of stroke COMPARISON STUDY: 08/05/2007, CT scan the head dated 06/24/2019 TECHNIQUE: MRI of the brain was performed from the vertex to the skull base utilizing various T1 and T2 weighted sequences. Following the IV administration of 6.5 mL of Gadavist contrast, additional enh anced images were obtained. FINDINGS: Sagittal T1, axial diffusion, proton density and T2 weighted axial, coronal FLAIR, and pre and post a xial T1-weighted images were acquired. These were supplemented with post gadolinium coronal T1 weight ed images. No intra or extra-axial mass lesions are visualized. Axial diffusion-weighted images reveal no evidence of acute or subacute infarction. There is ventricular dilatation, finding which is felt to be secondary to volume loss Proton density T2-weighted and FLAIR images reveal extensive foci of increased T2 signal within the w dg matter, likely on a small vessel basis. There is an old left cerebellar infarct. There are no abnormal flow voids. There is no evidence of pathologic enhancement. IMPRESSION: 1. No acute intracranial findings 2. No evidence of intracranial mass 3. No evidence of acute or subacute infarction 4. Extensive white matter disease most pronounced in the frontal regions likely on a small vessel bas is. 5. Ventricular dilatation likely secondary to volume loss Electronically signed by: Reilly Adame M.D. 06/27/2019 4:01 PM
[2019-06-27] MEDS: cefTRIAXone SODIUM 1,000 MG in DEXTROSE 5% 50 ML IV SCH (19:17)
[2019-06-27] MEDS: LATANOPROST 0.005% OP SOLN 2.5 ML BTL OPB SCH (21:18)
[2019-06-28] MEDS: VESICARE~ORDER AWAITING ACTION SCH ×2 (01:05→08:09)
[2019-06-28] MEDS: LEVOTHYROXINE SODIUM 125 MCG TABLET PO SCH (05:50)
[2019-06-28] MEDS: ESCITALOPRAM OXALATE 10 MG TAB PO SCH (08:08)
[2019-06-28] MEDS: AMLODIPINE BESYLATE 5 MG TAB PO SCH (08:08)
[2019-06-28] MEDS: lisinopriL 10 MG TAB PO SCH (08:08)
[2019-06-28] MEDS: ASPIRIN 81 MG ECTAB PO SCH (08:09)
[2019-06-28] MEDS: ENOXAPARIN INJ 30 MG/0.3 ML SYR SQ SCH (08:09)
[2019-06-28] MEDS: DOCUSATE SODIUM 100 MG CAP PO SCH (08:09)
--- NOTE | 2019-06-28 15:59 | Discharge Summary ---
Date of Service June 28, 2019 Admission HPI Per Admitting Provider Theresa Calderón is a pleasant 84-year-old female with history of diet- controlled diabetes, GERD, hypertension and hypothyroidism presenting after syncopal event. is at bedside and provides the majority of details secondary to patient confusion. Per , patient was sitting on a chair this afternoon when she slumped forward and became unresponsive. She was out approximately 10 minutes then slowly regained consciousness. He denies confusion, incontinence. She did have some minor tremors she was regaining consciousness, no overt seizure activity. Patient has minimal recollection of the event but is able to deny chest pain, palpitations, dizziness, headache preceding or following the event. Per , patient has had similar episodes in the past approximately 2-3 times that he recalls over the past year. The last syncopal event was a few months ago and was similar to tonjones's episode. Additionally, the patient and endorse balance difficulty ongoing for the last month as well as gait instability. Patient has been needing to use her walker at home. She reports that she is unable to stand for more than 15 minutes before becoming dizzy. She is also had urinary incontinence ongoing for the last year. endorses approximately 6 months of poor memory and confusion. Patient notes an occasional resting tremor in her hands. Also states that she has occasional visual hallucinationsseeing her mother. Patient has an appointment on [address] Daniels for further testing of possible dementia/cognitive impairment. Patient denies fevers, chills, abdominal pain, nausea, vomiting, diarrhea, constipation, chest pain, palpitations, shortness of breath, cough, wheeze. She does endorse some urinary incontinence ongoing for the last year but denies dysuria or hematuria ER course: Ceftriaxone, normal saline Principal Diagnosis Metabolic encephalopathy due to DANY and UTI Discharge Exam Constitutional WD/WN, vitals as above Eyes PERRL, conjunctivae normal, anicteric sclerae ENMT external ear and nose normal, oropharynx normal Neck trachea midline, no thyromegaly Respiratory normal respiratory effort, lungs clear to auscultation Cardiovascular RRR, no murmur, no edema Gastrointestinal (Abdomen) normal bowel sounds, soft, nontender, no hepatosplenomegaly Musculoskeletal no cyanosis or clubbing, extremities motor strength 5/5 Skin no rashes, warm and dry Neurologic patellar DTR's 2+ bilat, sensation intact and PERRL, EOMI, accommodation nl, no face palsy, no dysarthria Psychiatric Orientation: alert, oriented to person and cooperative; + not oriented to place and + not oriented to time Affect: euthymic affect Cognition: + recent memory not intact Lymphatic no cervical or axillary lymphadenopathy Discharge Data Allergies Allergy/AdvReac Type Severity Reaction Status Date / Time Sulfa (Sulfonamide Allergy Unknown TAKES Verified 06/24/19 16:51 Antibiotics) DYAZIDE AT HOME W/O RXN Consultations 06/24/19 19:26 ED Decision to Admit Stat 06/25/19 00:12 Consult Case Management - Discharge Planning Routine 06/25/19 17:40 Consult Neurology Routine Ordered Studies 06/24/19 16:11 CT head/brain wo con Stat 06/25/19 17:37 CT angio head w con Routine CT angio neck with con Routine 06/27/19 06:23 MR brain wo/w con Routine Hospital Course (1) Altered mental status: Acute metabolic encephalopathy Patient presents with confusion after syncopal episode while sitting in a chair. Recurrent syncope as below. endorses that she has had memory deficit and increased confusion over the last 6 months. They currently have an appointment at the end of July to assess for possible dementia with Dr. Bishop--? Neuropsych? most likely etiology of encephalopathy is UTI and DANY B12 and folate normal CT head with senescent changes and no acute intracranial pathology, but with old cerebellar CVAs No new medications or medication changes. MRI brain without stroke, just shows brain volume loss consistent with dementia PATIENT'S MENTAL STATUS WILL WAX AND WANE she will have some episodes that appear almost catatonic but then comes around this is due to delirium, will likely improve further going to [facility] but would not be surprised if she has a few episodes after discharge (2) DANY (acute kidney injury): [employer] 1.7 on admission as above, prerenal resolved completely with IV fluids eating and drinking well (3) UTI (urinary tract infection): Patient with + UA suggestive of UTI, now Ur cx growing E coli, noel sensitive treated with Rocephin, changed to Keflex on discharge afebrile, WBC normal, mental status improved (4) Syncope: Patient presents with what seems to be a syncopal event at home. She has had multiple events similar in the past. she has been hemodynamically stable. 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 Stable. TSH within normal limits Continue levothyroxine at home dose (9) Diet-controlled type 2 diabetes mellitus: Chronic. Stable. Consistent carb diet as tolerated -check A1C = 5.7%, at goal (10) Cognitive impairment: Worsening in the last 6 months, with significant senescent changes on CT and old CVAs, suspect vascular dementia -Neurology consults, Dr. Avina can follow in the clinic in 8-12 weeks -seeing Neuropsych soon as outpt -MRI brain with significantly decreased brain volume B12, folate normal can follow up with neurology clinic, Dr. Avina, in 8-10 months discussed at length with patient, after rehab stay patient may realistically need dementia unit as her cognitive impairment will only get worse Total Time Total Time Spent Total Time Spent (In Minutes): 40 minutes Total Time Includes: Examination of the Patient, Discharge Planning, Medication Reconciliation and Other (long talke with patient's ) Discharge Plan Discharge Items Patient Disposition: Transfer [facility] Fac Reason For Visit: AMS Discharge Diagnosis: Metabolic encephalopathy due to E coli UTI Acute kidney injury, dehydration Dementia, vascular vs Alzheimer's Condition on Discharge: Good Goals: improve strength and mobility complete course of antibiotics may need to transition to memory care unit, likely with moderate to advanced dementia Activity: Resume your previous activity Lifting: None Bathing: No limitations Exercise/Sports: Gradually increase as tolerated Weightbearing: Full weightbearing Non-emergency contact: Primary Care Provider Call non-emergency contact if: you have any medication questions, your symptoms worsen, your pain is not controlled and you have a fever Follow-up/Referrals: Perfecto Cueto MD [Primary Care Provider] - Diet: Regular Addtl Attending Provider Instructions: Medications: - KEFLEX: finish 4 more days worth of treatment, next dose due tomorrow morning - LISINOPRIL: dose increased to 10mg daily for better blood pressure control - AMLODIPINE: 5mg daily for blood pressure control Metabolic encephalopathy due to acute kidney injury (dehydration) and UTI (E coli) E coli is noel sensitive, treated with Rocephin x 3 days, will finish Keflex BID for 4 more days Cr is back to baseline function, no further fluids needed CT head without acute changes MRI brain with no stroke, shows significant volume loss in cerebrum, see below Cognitive impairment, dementia MRI brain shows significant volume loss in the cerebrum she has a follow up appointment with neuropsychologist that she can keep, in July [place]. Avina with [facility] [place] like to see her in 8-10 weeks for follow up please note that she will occasionally experience unresponsive states, staring off these have been self limiting in the hospital, likely a type of delirium as they wax and wane she may experience these at [facility], would not be alarmed, allow her to rest and she should come around I suspect she may require transition to Memory Care unit, is aware of this Pending Studies at Discharge: No Stand-Alone Forms: My [facility] Skilled Items Patient informed of condition?: Yes DNR: Yes Discharge Level of Care: Skilled Communicable Disease: No Discharge Prognosis: Stable Lines: None Urinary Catheter: No Medications and DC Order Prescriptions: New amlodipine [Norvasc] 5 mg Tablet 5 mg PO QAM 30 Days Qty: 30 RF: 0 lisinopril 10 mg Tablet 10 mg PO DAILY 30 Days Qty: 30 RF: 0 cephalexin [Keflex] 500 mg capsule 500 mg PO BID 4 Days Qty: 8 RF: 0 Continued alendronate 70 mg tablet 70 mg PO WK RF: 0 solifenacin 5 mg tablet 5 mg PO DAILY RF: 0 escitalopram oxalate 10 mg tablet 10 mg PO DAILY RF: 0 latanoprost 0.005 % drops 1 drp OPB HS RF: 0 meclizine [Motion Sickness (meclizine)] 25 mg Tablet 25 mg PO TID PRN (Reason: Dizziness) RF: 0 levothyroxine 125 mcg tablet 125 mcg PO QAM RF: 0 celecoxib 100 mg capsule 100 mg PO BID RF: 0 acetaminophen 500 mg Tablet 1,000 mg PO QPM PRN (Reason: Pain) RF: 0 cholecalciferol (vitamin D3) [Vitamin D3] 2,000 unit Capsule 2,000 unit PO QPM RF: 0 Discontinued lisinopril 2.5 mg tablet 2.5 mg PO DAILY RF: 0 Discharge Orders: Discharge Order (Routine); Ordered 06/28/19 Ordered By: Mejia Vega Admission Data Admit Date/Time: 06/25/19 17:02 Attending Provider: Mejia Vega Admit Provider: Reena Rapp Primary Care Provider: Perfecto Cueto Other Providers: Reena Rapp ; Adan Dahl III Other Interventions: Discharge Summary Assessment (RN) Last Done: 06/28/19 14:38 DC Date/Time DO NOT enter until pt leaves facility: 06/28/19 14:50
[2019-06-29 15:10] LABS: Ehrlichia chaff IgG Ab <1:64 (<1:64); Ehrlichia chaff IgM Ab <1:20 (<1:20)
== END 2019-06-28 14:50 | DRG 682 ==
LOC: ED 16:01 → 2W 16:01 → SUATTDRO 21:45 → 2W 22:35 → SUATTDRO 06-25 17:02